=== PATIENT | female | born 1950 | race Caucasian/White ===

== ENCOUNTER → 2021-03-15 11:32 | Outpatient (BNVA) | payer MEDICARE, MEDICAID, SELFPAY | PROVIDERS: Visit Provider Family Medicine | DX: E78.00 Pure hypercholesterolemia, unspecified (principal); I10 Essential (primary) hypertension; K52.9 Noninfective gastroenteritis and colitis, unspecified; K21.9 Gastro-esophageal reflux disease without esophagitis | CPT/HCPCS: 80053; 80061; 82043; 85025 ==

== ENCOUNTER → 2021-05-31 10:43 | Outpatient (BNVA) | payer MEDICARE, MEDICAID, SELFPAY | PROVIDERS: PCP Family Medicine; Visit Provider Family Medicine | DX: E87.6 Hypokalemia (principal) | CPT/HCPCS: 80048 ==

== ENCOUNTER → 2021-07-26 11:00 | Outpatient (BNVA) | payer MEDICARE, MEDICAID, SELFPAY | PROVIDERS: PCP Family Medicine; Visit Provider Family Medicine | DX: M51.36 Other intervertebral disc degeneration, lumbar region (principal); N39.41 Urge incontinence; E87.6 Hypokalemia; Z23 Encounter for immunization; Z79.891 Long term (current) use of opiate analgesic; K21.9 Gastro-esophageal reflux disease without esophagitis | CPT/HCPCS: 80307 ==

== ENCOUNTER 2021-10-17 10:35 | Emergency (ER) | payer MEDICARE, MEDICAID, SELFPAY ==
[2021-10-17 10:55] VITALS: BP 207/77; PULSE 56; RESP 18; TEMP 36.9; O2SAT 93; BMI 42.8
[2021-10-17 10:59] VITALS: BP 167/75; PULSE 56; RESP 18; O2SAT 93
--- NOTE | 2021-10-17 11:25 | XRR_ITS ---
PROCEDURE INFORMATION: Exam: XR Left Hand Exam date and time: 10/17/2021 11:30 AM Age: 71 years old Clinical indication: Pain; Hand; Left TECHNIQUE: Imaging protocol: XR Left hand. Views: 3 or more views. COMPARISON: No relevant prior studies available. FINDINGS: Bones/joints: Normal. Soft tissues: Normal. XR/XR hand LT min 3V* [id number] IMPRESSION: No acute findings.
[2021-10-17] MEDS: HYDROcodone-acetaminophen 5-325 mg Tablet 1 TAB PO (11:39)
--- NOTE | 2021-10-17 11:50 | ED_ITS ---
HPI - Extremity Problem General: Chief complaint: Extremity Injury, Upper Stated complaint: Rt Hand Swollen Time Seen by Provider: 10/17/21 10:41 Source: patient Mode of arrival: ambulatory History of Present Illness: 71-year-old female who presents to the emergency room with complaint of right hand pain and swelling. She reached down in between cushion of a chair on the side arm and felt like it got crushed. Happened a few days ago. She has pain at the right first MP joint. No skin tear or ulceration. MD Complaint: joint pain Onset (ago): day(s) (1) Pain Consistency: constant Location: right Quality: sharp Radiation: none Relieving factors: cold therapy and rest Exacerbating factors: range of motion and palpation Associated symptoms: Deny arthralgias, chest pain, fever(s), myalgias, rash, short of breath or other Review of Systems Const: Denies: fever(s), chills or body aches ENMT: Denies: throat pain, ear or mastoid pain, nasal discharge or nasal congestion Card: Denies: chest pain or palpitations Resp: Denies: dyspnea, productive cough or non-productive cough GI: Denies: abdominal pain, nausea, vomiting, hematemesis, coffee ground emesis, diarrhea, constipation, bloating, hematochezia or melena : Denies: flank pain, difficulty voiding, dysuria, urinary frequency or urinary urgency Skin/Breast: Denies: rash PFSH ED PFSH: Medical History (Updated 10/17/21 @ 14:54 by Luis Carlos Rodriguez DO) Carpal tunnel syndrome, bilateral Chiari malformation Degenerative disc disease Lumbar spine Depression Essential hypertension GERD (gastroesophageal reflux disease) Hypercholesteremia Hypothyroidism CASE (obstructive sleep apnea) Uses a CPAP Osteoarthritis Surgical History H/O: hysterectomy Total History of appendectomy History of carpal tunnel surgery of left wrist History of carpal tunnel surgery of right wrist History of hernia repair Right inguinal History of tonsillectomy Hx of right heart catheterization S/P cholecystectomy Status post left rotator cuff repair Status post medial meniscus repair of right knee Family History Mother Cancer, Onset Age: 80 lung cancer Hyperthyroidism COPD (chronic obstructive pulmonary disease) Father Cancer, Onset Age: 56 prostate Social History Smoking and tobacco status: current every day smoker Second hand smoke exposure: No Alcohol intake: former Former alcohol use details: occasional social drinker Adopted: No Caregiver/support person: Yes Lives independently: Yes Household members: children Housing: House Marital status: Number of children: 3 Highest education level completed: GED or Equivalent service: No Current occupational status: retired Pets and animals: Yes Pets & animals: dog(s) History of recent travel: No Current gender identity: Female Physical Exam Const: COMMON NORMALS: no acute distress GENERAL APPEARANCE: cooperative and comfortable ORIENTATION/CONSCIOUSNESS: Yes awake, Yes oriented to person, Yes oriented to place and Yes oriented to time HENMT: COMMON NORMALS: normocephalic, atraumatic and hearing grossly normal bilaterally HEAD & SCALP: normocephalic and atraumatic Neck/C-Spine: COMMON NORMALS: no JVD Resp: COMMON NORMALS: normal respiratory effort, No retractions, No use of accessory muscles and clear to auscultation bilaterally AUSCULTATION: clear to auscultation bilaterally Cardio: COMMON NORMALS: no JVD, regular rate, regular rhythm and No murmurs present (Cardio) RATE: regular rate RHYTHM: regular rhythm GI: COMMON NORMALS: Soft to palpation and No hepatosplenomegaly present AUSCULTATION: Yes normoactive bowel sounds PALPATION: Yes Soft to palpation, No Tenderness to palpation present (GI), No Guarding due to palpation present (GI) and Yes No hepatosplenomegaly present Extremity: COMMON NORMALS: normal to inspection, capillary refill normal, no clubbing, cyanosis or edema, no calf tenderness and no pedal edema Neuro: SENSORIUM/ORIENTATION: Yes oriented to person, Yes oriented to place and Yes oriented to time Skin: COMMON NORMALS: no rashes or lesions noted GENERAL SKIN EXAM: no rashes or lesions noted Course Vital Signs: Vital signs: Vital Signs Temperature 98.4 F 10/17/21 10:55 Pulse Rate 56 L 10/17/21 12:29 Respiratory Rate 18 10/17/21 12:29 Blood Pressure 162/80 10/17/21 12:29 Pulse Oximetry 93 10/17/21 12:29 MDM - Extremity (Nontraumatic) Medical Decision Making Reviewed findings with patient. X-ray is negative we will start her on a course of steroids she is concerned may be gout she has had gout problems in the past joint self is not particularly inflamed or swollen although it is fairly tender. She is not able to take nonsteroidal anti-inflammatories she uses oxycodone at home. Recheck if not improving Medical Records I reviewed the patient's medical records. Lab Data I reviewed the patient's lab results. Radiology Impressions Hand X-Ray 10/17/21 11:25 IMPRESSION: No acute findings. Discharge Plan Discharge Patient Disposition: Home Clinical Impression: Hand pain, right Condition: Stable Prescriptions: New prednisone 20 mg tablet 20 mg PO TID Qty: 15 0RF Rx Instructions: 1 p.o. 3 times daily x3 days, 1 p.o. twice daily x2 days, 1 p.o. daily x2 days No Action (DME) shower chair See Rx Instructions .Route .MEDSUPPLY Qty: 1 0RF Rx Instructions: As directed omeprazole 40 mg capsule,delayed release(DR/EC) 40 mg PO DAILY Qty: 90 0RF oxycodone 10 mg tablet 10 mg PO BID PRN (Reason: pain) 30 Days Qty: 60 0RF Rx Instructions: Do not fill until 09/23/2021 losartan 100 mg tablet 100 mg PO DAILY 0RF amlodipine 10 mg tablet 10 mg PO DAILY 0RF Viibryd 40 mg tablet 40 mg PO DAILY 0RF Rx Instructions: must administer with a meal/food loratadine [Allergy Relief (loratadine)] 10 mg tablet 10 mg PO DAILY 0RF aspirin 81 mg tablet,delayed release (DR/EC) 81 mg PO DAILY 0RF albuterol sulfate 90 mcg/actuation HFA aerosol inhaler 2 puff inhalation Q6H PRN0RF CPAP .Route .bedtime 0RF Rx Instructions: CPAP at night for sleep apnea oxybutynin chloride 5 mg tablet 5 mg PO BID Qty: 180 1RF Rx Instructions: Please disregard the prior rx ondansetron HCl [Zofran] 4 mg tablet 4 mg PO Q8H PRN (Reason: nausea and vomiting) Qty: 10 0RF colesevelam 625 mg tablet 625 mg PO QAM Qty: 90 0RF (DME) Cpap mask and suppies See Rx Instructions .Route .MEDSUPPLY Qty: 1 0RF Rx Instructions: As directed baclofen 10 mg tablet See Rx Instructions .ROUTE .COMPLEX Qty: 120 0RF Dose Instruction: TAKE 1 TABLET BY MOUTH TWICE DAILY NEEDED Rx Instructions: TAKE 1 TABLET BY MOUTH TWICE DAILY NEEDED metoprolol tartrate 50 mg tablet 50 mg PO BID Qty: 180 0RF atorvastatin 20 mg tablet 20 mg PO DAILY Qty: 90 0RF levothyroxine 150 mcg capsule 150 mcg PO DAILY Qty: 90 0RF Discharge Orders: Discharge ED (Routine); Ordered 10/17/21 Ordered By: Luis Carlos Rodriguez Referrals: Kayla Mcfarlane DO [Primary Care Provider] - Discharge Diet: Usual diet Discharge Activity: Resume usual activity Patient Instructions: Opioid Safety Activity Restrictions/Additional Instructions: Follow-up with your primary care doctor if persists. Coding Level of Care Code ED Bleaching Machine Operator for Maisha Robison
[2021-10-17 12:29] VITALS: BP 162/80; PULSE 56; RESP 18; O2SAT 93
== END 2021-10-17 12:31 | disposition home or self-care (01) ==
PROVIDERS: Emergency Provider Family Medicine; PCP Family Medicine
DX: M79.89 Other specified soft tissue disorders (principal); M79.641 Pain in right hand
CPT/HCPCS: 73130; 99283

== ENCOUNTER → 2021-11-01 11:36 | Outpatient (BNVA) | payer MEDICARE, MEDICAID, SELFPAY | PROVIDERS: PCP Family Medicine; Visit Provider Family Medicine | DX: E03.9 Hypothyroidism, unspecified (principal); J01.90 Acute sinusitis, unspecified; B96.89 Other specified bacterial agents as the cause of diseases classified elsewhere; R09.89 Other specified symptoms and signs involving the circulatory and respiratory systems; I10 Essential (primary) hypertension | CPT/HCPCS: 80053; 84443; 85025 ==

== ENCOUNTER 2022-02-08 09:06 | Outpatient (CLI) | payer MEDICARE, MEDICAID, SELFPAY ==
--- NOTE | 2022-02-08 10:00 | USCV_ITS ---
HaseebAlesia roy Age: 71 Gender: F : 1950 Exam Date: 02/08/2022 09:17 Ordering Phys: Kayla Mcfarlane DO Technologist: LEEANN [place] [facility] [place] Bilaterly Bruits Risk Factors: Unknown Previous Vascular Surgery: CABG Right Brachial BP: / Left Brachial BP: / Right Left Velocity (cm/s) Spectral Plaque Velocity (cm/s) Spectral Plaque Syst/Diast Broadening Syst/Diast Broadening 62.80/ 15.20 Prox CCA 59.20 / 13.70 53.60/ 13.20 Mid CCA 50.60 / 8.60 36.80/ 12.10 Distal CCA 55.70 / 17.20 Hetro 46.70/ 9.10 Prox ICA 55.70 / 19.70 Hetro 37.70/ 10.40 Mid ICA 57.50 / 18.90 56.70/ 12.60 Distal ICA 68.60 / 20.60 86.50 ECA 80.60 Hetro 1.06 ICA/CCA 1.36 Antegrade Vertebral Antegrade 32.60/ 7.30 cm/s 34.30/ 10.30 cm/s Bi Subclavian Tri 97.80 135.4 0 CONCLUSIONS Right ICA stenosis <50%. Mild atheromatous plaque right carotid bulb/ICA. Left ICA stenosis <50%. Mild atheromatous plaque left carotid bulb/ICA. Normal antegrade Doppler flow noted in the right vertebral artery. Normal antegrade Doppler flow noted in the left vertebral artery. Kareem Bravo MD (Electronically Signed) Final Date: 08 February 2022 09:54 S
== END 2022-02-08 09:07 | disposition home or self-care (01) ==
PROVIDERS: PCP Family Medicine; Visit Provider Family Medicine
DX: R09.89 Other specified symptoms and signs involving the circulatory and respiratory systems (principal)
CPT/HCPCS: 93880

== ENCOUNTER → 2022-02-14 11:45 | Outpatient (BNVA) | payer MEDICARE, MEDICAID, SELFPAY | PROVIDERS: PCP Family Medicine; Visit Provider Family Medicine | DX: M51.36 Other intervertebral disc degeneration, lumbar region (principal); R00.1 Bradycardia, unspecified; F41.9 Anxiety disorder, unspecified | CPT/HCPCS: 82607; 85025 ==

== ENCOUNTER → 2022-08-15 09:18 | Outpatient (BNVA) | payer MEDICARE, MEDICAID, SELFPAY | PROVIDERS: PCP Family Medicine; Visit Provider Family Medicine | DX: I10 Essential (primary) hypertension (principal); E78.00 Pure hypercholesterolemia, unspecified; E03.9 Hypothyroidism, unspecified; M51.36 Other intervertebral disc degeneration, lumbar region | CPT/HCPCS: 80053; 80061; 82043; 84443; 85025 ==

== ENCOUNTER 2022-08-26 14:31 | Outpatient (CLI) | payer MEDICARE, MEDICAID, SELFPAY ==
--- NOTE | 2022-08-26 14:39 | MM_ITS ---
WS: [id number] BILATERAL 3D TOMOSYNTHESIS DIGITAL SCREENING MAMMOGRAPHY WITH CAD CLINICAL INFORMATION: screening mammogram HISTORY: Screening mammogram. No current complaints. COMPARISON: 2020 TECHNIQUE: Bilateral CC and MLO views. FINDINGS: Scattered fibroglandular densities bilaterally. No suspicious focal mass, asymmetry, calcifications, or architectural distortion. No evidence of malignancy. Incidental punctate calcifications. A few pun ctate clustered calcifications. MM/[place] [id number] IMPRESSION: BI-RADS: 2-Benign FOLLOW UP: 1 Year Follow-up Recommend return to annual screening mammography.
== END 2022-08-26 14:32 | disposition home or self-care (01) ==
PROVIDERS: PCP Family Medicine; Visit Provider Family Medicine
DX: Z12.31 Encounter for screening mammogram for malignant neoplasm of breast (principal)
CPT/HCPCS: 77063; 77067

== ENCOUNTER → 2022-11-21 10:22 | Outpatient (BNVA) | payer MEDICARE, MEDICAID, SELFPAY | PROVIDERS: PCP Family Medicine; Visit Provider Family Medicine | DX: E87.6 Hypokalemia (principal); M51.36 Other intervertebral disc degeneration, lumbar region; F17.219 Nicotine dependence, cigarettes, with unspecified nicotine-induced disorders | CPT/HCPCS: 80048 ==

== ENCOUNTER → 2023-02-18 11:12 | Outpatient (BNVA) | payer MEDICARE, MEDICAID, SELFPAY | PROVIDERS: PCP Family Medicine; Visit Provider Family Medicine | DX: E03.9 Hypothyroidism, unspecified (principal); E87.6 Hypokalemia; I10 Essential (primary) hypertension; M51.36 Other intervertebral disc degeneration, lumbar region | CPT/HCPCS: 80048; 84443 ==

== ENCOUNTER → 2023-04-29 10:40 | Outpatient (BNVA) | payer MEDICARE, MEDICAID, SELFPAY | PROVIDERS: PCP Family Medicine; Visit Provider Family Medicine | DX: E03.9 Hypothyroidism, unspecified (principal) | CPT/HCPCS: 84439; 84443 ==

== ENCOUNTER → 2023-04-30 10:33 | Outpatient (BNVA) | payer MEDICARE, MEDICAID, SELFPAY | PROVIDERS: PCP Family Medicine; Visit Provider Registered Nurse Neonatal Intensive Care | DX: R39.9 Unspecified symptoms and signs involving the genitourinary system (principal); R10.9 Unspecified abdominal pain; M54.9 Dorsalgia, unspecified; M54.50 Low back pain, unspecified | CPT/HCPCS: 81000; 87086 ==

== ENCOUNTER 2023-05-01 16:19 | Emergency (ER) | payer MEDICARE, MEDICAID, SELFPAY ==
[2023-05-01 16:30] VITALS: BP 157/72; PULSE 59; RESP 18; TEMP 37.1; O2SAT 96; BMI 39.3
[2023-05-01 17:09] LABS: Basophils # 0.1 10^3/uL (0.0-0.1); Basophils % 0.6 %; Eosinophils # 0.3 10^3/uL (0.0-0.8); Eosinophils % 2.4 %; Hematocrit 47.2 % (36-47); Lymphocytes # 2.8 10^3/uL (0.8-4.8); Lymphocytes % 26.2 %; Mean Corpuscular Volume 84.4 fl (85-98); Mean Platelet Volume 9.5 fL (7.4-10.4); Monocytes # 0.8 10^3/uL (0.2-0.9); Monocytes % 7.7 %; Neutrophils # 6.78 10^3/uL (1.8-7.7); Neutrophils % 62.8 %; Nucleated Red Blood Cells % 0 %; Platelet Count 286 10^3/cmm (157-399); Red Blood Count 5.59 10^6/uL (3.85-5.65); Red Cell Distribution Width 15.1 % (12.1-15.1)
--- NOTE | 2023-05-01 17:18 | CTR_ITS ---
PROCEDURE INFORMATION: Exam: CT Abdomen And Pelvis Without Contrast Exam date and time: 05/01/2023 6:05 PM Age: 72 years old Clinical indication: Abdominal pain; Flank; Right; Prior surgery; Surgery date: 6+ months; Surgery type: Appy, hyst, patience hernia; Additional info: Right flank pain and hematuria TECHNIQUE: Imaging protocol: Computed tomography of the abdomen and pelvis without contrast. Radiation optimization: All CT scans at this facility use at least one of these dose optimization techniques: automated exposure control; mA and/or kV adjustment per patient size (includes targeted exams where dose is matched to clinical indication); or iterative reconstruction. REPORTING DATA: Count of CT and Cardiac NM exams in prior 12 months: This patient has received 0 known CTs and 0 known cardiac nuclear medicine studies in the 12 months prior to the current study. COMPARISON: No relevant prior studies available. RADIATION DOSE METRICS: Total DLP (mGy-cm): 1019 FINDINGS: Lungs: Mild nonspecific ground-glass density at the lung bases. No consolidative infiltrates. Liver: Unremarkable. No mass. Gallbladder and bile ducts: Nonvisualization of the gallbladder suggesting cholecystectomy. No biliary dilatation. Pancreas: Unremarkable. No ductal dilation. Spleen: Unremarkable. No splenomegaly. Adrenal glands: Small bilateral adrenal adenomas noted, measuring up to 1.4 cm. Kidneys and ureters: The kidneys are morphologically normal. No nephrolithiasis. No hydronephrosis. No ureteral calculi. No obstructive uropathy. Simple appearing 1.9 cm right renal cyst noted incidentally. Stomach and bowel: Diverticulosis of the sigmoid colon. No findings of acute diverticulitis. Mural thickening of the distal descending and sigmoid portions of the colon, suggesting nonspecific distal colitis. Appendix: No evidence of appendicitis. Intraperitoneal space: No free air. No significant fluid collection. Vasculature: No abdominal aortic aneurysm. Lymph nodes: No pathologically enlarged lymph nodes. Urinary bladder: Urinary bladder is almost completely empty. Urinary bladder wall is asymmetrically thickened which may be secondary to underdistention, or may be related to an infiltrating process. Reproductive: Status post hysterectomy. Bones/joints: Postop change and degenerative change of the lumbar spine noted. Soft tissues: Unremarkable. CT/CT kidney stone [id number] IMPRESSION: 1. Small bilateral adrenal adenomas noted, measuring up to 1.4 cm. 2. The kidneys are morphologically normal. No nephrolithiasis. No hydronephrosis. No ureteral calculi. No obstructive uropathy. 3. Urinary bladder is almost completely empty. Urinary bladder wall is asymmetrically thickened which may be secondary to underdistention, or may be related to an infiltrating process. 4. Mural thickening of the distal descending and sigmoid portions of the colon, suggesting nonspecific distal colitis. 5. Diverticulosis of the sigmoid colon. No findings of acute diverticulitis. COMMENTS: 1. Consistent with the [employer]'s Incidental Findings Committee white paper (J Am Tyrese Radiol 2017): For any incidental adrenal lesion greater than or equal to 1 cm but less than or equal to 4 cm classified in this report as benign, likely benign, or containing fat (including classification as an adenoma or myelolipoma), no follow-up imaging is recommended per consensus recommendations based on imaging criteria. Further lab evaluation could be pursued if warranted based on clinical findings. 2. Consistent with the [employer]'s Incidental Findings Committee white paper (J Am Tyrese Radiol 2018): Any incidental renal lesion less than 1 cm or classified as too small to characterize, or any incidental cystic renal lesion characterized as simple-appearing, is likely benign. No follow-up imaging is recommended for these lesions per consensus recommendations based on imaging criteria.
[2023-05-01 17:21] LABS: Alanine Aminotransferase 7 U/L (0-33); Albumin Level 3.8 g/dL (3.5-5.2); Alkaline Phosphatase 136 U/L (35-105); Anion Gap 13.6 (5-19); Aspartate Amino Transferase 8 U/L (0-32); Blood Urea Nitrogen 16 mg/dL (8-23); Calcium 9.3 mg/dL (8.5-10.5); Carbon Dioxide 23 mmol/L (22-29); Chloride 105 mmol/L (98-107); Globulin 3.2 g/dL (1.3-4.6); Glomerular Filtration Rate 54.8 mL/min (90-130); Glucose 93 mg/dL (65-115); Osmolality Calculated 287 mOsm/kg (285-295); Potassium 3.6 mmol/L (3.5-5.1); Sodium 138 mmol/L (136-145); Total Bilirubin 0.4 mg/dL (0.15-1.2)
[2023-05-01 17:49] VITALS: RESP 17
[2023-05-01] MEDS: sodium chloride 0.9% 1,000 ML 999 ML IV (17:49)
[2023-05-01] MEDS: oxyCODONE-APAP 10-325 mg Tablet 1 TAB PO (17:49)
[2023-05-01 18:44] LABS: Add Urine Microscopic? YES; Bilirubin Urine Neg (Negative); Blood Urine Neg (Negative); Glucose Urine UA Norm (Normal); Ketones Urine Negative (Negative); Leukocyte Esterase Urine 1+ (Negative); Nitrate Urine Negative (Negative); Protein Urine Neg (Negative); Urine Appearance Hazy (CLEAR); Urine Color Dark Yellow (Yellow); Urobilinogen Urine Norm (Negative); pH Urine 6 (5-7)
[2023-05-01 18:48] LABS: Add Urine Culture? No; Amorphous Sediment Urine TRACE /hpf; Bacteria Urine TRACE /hpf; Hyaline Casts Urine 0-4 /lpf; Mucus Urine 2+ /hpf; RBC Urine 0-4 /hpf (0-2); Renal Epithelial Cells Urine RARE /hpf; Transitional Epi Cells Urine 0-4 /hpf
--- NOTE | 2023-05-01 19:56 | W.ED.BACK ---
Documented by User: JORDAN Martinez 05/01/23 20:09 HPI - Back Pain/Injury General: Chief Complaint: Back Pain/Injury Stated Complaint: low back pain/blood in urine Time Seen by Provider: 05/01/23 16:49 History of Present Illness: Patient is in today for right-sided flank and low back pain. She reports that this started the night before last. She reports that yesterday she went to the urgent care and they did a urine sample and labs they sent her home after a Toradol shot. She reports that the Toradol did help the pain somewhat but it came back. She reports that she never heard from her labs and so she called her primary care provider today. Primary care provider said that since there was blood in her urine she needed to come and have a CT scan at the ER. Patient denies any fever or chills. She reports that she has had some nausea without any vomiting. She has never had a kidney stone in the past but she does have a concern for that. She denies having her gallbladder or her appendix. She denies diarrhea or constipation. Associated symptoms: Reports abdominal pain and nausea; Deny chills, fever(s) or vomiting Review of Systems Const: Denies: fever(s) or chills Card: Denies: chest pain or palpitations Resp: Denies: dyspnea, productive cough or non-productive cough GI: Reports: abdominal pain and nausea; Denies: vomiting, diarrhea or constipation : Reports: flank pain Musc: Reports: back pain PFSH ED PFSH: Medical History Carpal tunnel syndrome, bilateral Degenerative disc disease Lumbar spine Depression Essential hypertension GERD (gastroesophageal reflux disease) Hypercholesteremia Hypothyroidism CASE (obstructive sleep apnea) Uses a CPAP Osteoarthritis Surgical History H/O: hysterectomy Total History of appendectomy History of carpal tunnel surgery of left wrist History of carpal tunnel surgery of right wrist History of hernia repair Right inguinal History of tonsillectomy Hx of right heart catheterization S/P cholecystectomy Status post left rotator cuff repair Status post medial meniscus repair of right knee Family History Mother Cancer, Onset Age: 80 lung cancer Hyperthyroidism COPD (chronic obstructive pulmonary disease) Father Cancer, Onset Age: 56 prostate Social History Smoking and tobacco/nicotine status: current every day tobacco/nicotine user Second hand smoke exposure: No Alcohol intake: former Former alcohol use details: occasional social drinker Substance/Drug Use: never Adopted: No Caregiver/support person: Yes Lives independently: Yes Household members: children Housing: House Marital status: Number of children: 3 Highest education level completed: GED or Equivalent service: No Current occupational status: retired Pets and animals: Yes Pets & animals: dog(s) Current gender identity: Female Physical Exam Const: COMMON NORMALS: patient oriented x3 and alert OTHER: Patient appears to be in pain and is grabbing her right side low back and flank Neck/C-Spine: COMMON NORMALS: no JVD Resp: COMMON NORMALS: normal respiratory effort, No use of accessory muscles and clear to auscultation bilaterally AUSCULTATION: clear to auscultation bilaterally Cardio: COMMON NORMALS: no JVD, regular rate, regular rhythm, S1 normal heart sound present and S2 normal heart sound present RATE: regular rate RHYTHM: regular rhythm HEART SOUNDS: S1 normal heart sound present and S2 normal heart sound present GI: COMMON NORMALS: Soft to palpation INSPECTION: Yes normal to inspection AUSCULTATION: Yes normoactive bowel sounds PALPATION: Yes Soft to palpation, Yes Tenderness to palpation present (GI) Details: RLQ and No Rebound tenderness present : COMMON NORMALS: Yes no CVA tenderness BLADDER/KIDNEY EXAM: Yes no CVA tenderness Back/Pelvis: COMMON NORMALS: no CVA tenderness OTHER: Patient is grabbing her right-sided low back however it is not tender to palpation there is no obvious bony or soft tissue deformity appreciated. Patient is walking with a steady gait and no limp. Neuro: COMMON NORMALS: patient oriented x3 SENSORIUM/ORIENTATION: Yes alert Course Vital Signs: Vital signs: Vital Signs Temperature 98.7 F 05/01/23 16:30 Pulse Rate 59 L 05/01/23 16:30 Respiratory Rate 17 05/01/23 17:49 Blood Pressure 157/72 05/01/23 16:30 Pulse Oximetry 96 05/01/23 16:30 MDM - Back Pain/Injury Medical Decision Making Patient takes chronic pain medication at home for back pain which she reports this is very different. Patient has allergy to numerous pain medications. She is able to tolerate oxycodone. 1 dose was given today to help with her pain. Decided not to give Toradol because patient's creatinine is 1 and she had a dose of Toradol yesterday. Patient labs do not reflect any acute infectious process. Abdominal CT stone protocol is done. CT shows small bilateral adrenal adenomas, no nephrolithiasis, no hydronephrosis, no ureteral calculi, no obstructive uropathy. Urinary bladder wall is asymmetrically thickened which may be secondary to under distention or may be related to an infiltrating process. There is some mural thickening of the distal descending and sigmoid portions of the colon suggesting nonspecific distal colitis no acute diverticulitis. Urine shows positive leukoesterase, negative nitrates. Hazy urine with some hyaline cast. We will go ahead and treat patient to cover for early developing urinary tract infection given the asymmetric bladder wall thickening and the patient's current pain. Treat with cefdinir as patient has a sulfa allergy. Nitrofurantoin not chosen due to elevated creatinine and advanced age. Advised patient to follow-up with her primary care provider which she already has an appointment with on Friday. Make sure she is staying well-hydrated. Return to the ER as needed for any new or worsening symptoms. Labs 05/01/23 16:58 05/01/23 16:58 Radiology Impressions Abdomen/Pelvis CT 05/01/23 17:18 IMPRESSION: 1. Small bilateral adrenal adenomas noted, measuring up to 1.4 cm. 2. The kidneys are morphologically normal. No nephrolithiasis. No hydronephrosis. No ureteral calculi. No obstructive uropathy. 3. Urinary bladder is almost completely empty. Urinary bladder wall is asymmetrically thickened which may be secondary to underdistention, or may be related to an infiltrating process. 4. Mural thickening of the distal descending and sigmoid portions of the colon, suggesting nonspecific distal colitis. 5. Diverticulosis of the sigmoid colon. No findings of acute diverticulitis. COMMENTS: 1. Consistent with the [employer]'s Incidental Findings Committee white paper (J Am Tyrese Radiol 2017): For any incidental adrenal lesion greater than or equal to 1 cm but less than or equal to 4 cm classified in this report as benign, likely benign, or containing fat (including classification as an adenoma or myelolipoma), no follow-up imaging is recommended per consensus recommendations based on imaging criteria. Further lab evaluation could be pursued if warranted based on clinical findings. 2. Consistent with the [employer]'s Incidental Findings Committee white paper (J Am Tyrese Radiol 2018): Any incidental renal lesion less than 1 cm or classified as too small to characterize, or any incidental cystic renal lesion characterized as simple-appearing, is likely benign. No follow-up imaging is recommended for these lesions per consensus recommendations based on imaging criteria. Laboratory Results WBC 10.80 10^3/uL (3.29-11.43) 05/01/23 16:58 RBC 5.59 10^6/uL (3.85-5.65) 05/01/23 16:58 Hgb 15.10 g/dL (11.27-16.99) 05/01/23 16:58 Hct 47.2 % (36-47) H 05/01/23 16:58 MCV 84.4 fl (85-98) L 05/01/23 16:58 MCH 27.0 pg (27-33) 05/01/23 16:58 MCHC 32.0 g/dL (30-55) 05/01/23 16:58 RDW 15.1 % (12.1-15.1) 05/01/23 16:58 Plt Count 286 10^3/cmm (157-399) 05/01/23 16:58 MPV 9.5 fL (7.4-10.4) 05/01/23 16:58 Neut % (Auto) 62.8 % 05/01/23 16:58 Lymph % (Auto) 26.2 % 05/01/23 16:58 Kemper % (Auto) 7.7 % 05/01/23 16:58 Eos % (Auto) 2.4 % 05/01/23 16:58 Baso % (Auto) 0.6 % 05/01/23 16:58 Neut # (Auto) 6.78 10^3/uL (1.8-7.7) 05/01/23 16:58 Lymph # (Auto) 2.8 10^3/uL (0.8-4.8) 05/01/23 16:58 Kemper # (Auto) 0.8 10^3/uL (0.2-0.9) 05/01/23 16:58 Eos # (Auto) 0.3 10^3/uL (0.0-0.8) 05/01/23 16:58 Baso # (Auto) 0.1 10^3/uL (0.0-0.1) 05/01/23 16:58 Nucleated RBC % (auto) 0 % 05/01/23 16:58 Nucleated RBCs # 0.0 /100WBC 05/01/23 16:58 Sodium 138 mmol/L (136-145) 05/01/23 16:58 Potassium 3.6 mmol/L (3.5-5.1) 05/01/23 16:58 Chloride 105 mmol/L (98-107) 05/01/23 16:58 Carbon Dioxide 23 mmol/L (22-29) 05/01/23 16:58 Anion Gap 13.6 (5-19) 05/01/23 16:58 BUN 16 mg/dL (8-23) 05/01/23 16:58 Creatinine 1.0 mg/dL (0.5-0.9) H 05/01/23 16:58 GFR Calculation 54.8 mL/min (90-130) L 05/01/23 16:58 Glucose 93 mg/dL (65-115) 05/01/23 16:58 Calculated Osmolality 287 mOsm/kg (285-295) 05/01/23 16:58 Calcium 9.3 mg/dL (8.5-10.5) 05/01/23 16:58 Total Bilirubin 0.4 mg/dL (0.15-1.2) 05/01/23 16:58 AST 8 U/L (0-32) 05/01/23 16:58 ALT 7 U/L (0-33) 05/01/23 16:58 Alkaline Phosphatase 136 U/L (35-105) H 05/01/23 16:58 Total Protein 7.0 g/dL (6.6-8.7) 05/01/23 16:58 Albumin 3.8 g/dL (3.5-5.2) 05/01/23 16:58 Globulin 3.2 g/dL (1.3-4.6) 05/01/23 16:58 Urine Color Dark yellow (Yellow) 05/01/23 18:09 Urine Appearance Hazy (CLEAR) A 05/01/23 18:09 Urine pH 6 (5-7) 05/01/23 18:09 Ur Specific Platinum 1.020 (1.005-1.030) 05/01/23 18:09 Urine Protein Neg (Negative) 05/01/23 18:09 Urine Glucose (UA) Norm (Normal) 05/01/23 18:09 Urine Ketones Negative (Negative) 05/01/23 18:09 Urine Blood Neg (Negative) 05/01/23 18:09 Urine Nitrate Negative (Negative) 05/01/23 18:09 Urine Bilirubin Neg (Negative) 05/01/23 18:09 Urine Urobilinogen Norm mg/dL (Negative) 05/01/23 18:09 Ur Leukocyte Esterase 1+ (Negative) H 05/01/23 18:09 Urine RBC 0-4 /hpf (0-2) H 05/01/23 18:09 Urine WBC 5-10 /hpf (0-5) H 05/01/23 18:09 Ur Squamous Epith Cells 5-10 /hpf (0-5) H 05/01/23 18:09 Ur Transition Epith Cell 0-4 /hpf 05/01/23 18:09 Ur Renal Epithelial Cell Rare /hpf 05/01/23 18:09 Amorphous Sediment Trace /hpf 05/01/23 18:09 Urine Bacteria Trace /hpf (NONE) 05/01/23 18:09 Hyaline Casts 0-4 /lpf H 05/01/23 18:09 Urine Mucus 2+ /hpf 05/01/23 18:09 All radiology interpretation(s) finalized by discharge Discharge Plan Discharge Patient Disposition: Home Clinical Impression: UTI (urinary tract infection) Condition: Stable Prescriptions: New cefdinir 300 mg capsule 300 mg PO BID 5 Days Qty: 10 0RF No Action (DME) shower chair See Rx Instructions .Route .MEDSUPPLY Qty: 1 0RF Rx Instructions: As directed loratadine [Allergy Relief (loratadine)] 10 mg tablet 10 mg PO DAILY CPAP .Route .bedtime Rx Instructions: CPAP at night for sleep apnea aspirin 81 mg tablet,delayed release (DR/EC) 81 mg PO DAILY Qty: 90 1RF losartan 100 mg tablet See Rx Instructions .ROUTE .COMPLEX Qty: 90 1RF Dose Instruction: TAKE ONE TABLET BY MOUTH DAILY Rx Instructions: TAKE ONE TABLET BY MOUTH DAILY Viibryd 40 mg tablet See Rx Instructions .ROUTE .COMPLEX Qty: 90 1RF Dose Instruction: TAKE ONE TABLET BY MOUTH DAILY must administer with a meal/food Rx Instructions: TAKE ONE TABLET BY MOUTH DAILY must administer with a meal/food buspirone 5 mg tablet 5 mg PO TID Qty: 60 0RF metoprolol tartrate 25 mg tablet 25 mg PO BID Qty: 180 1RF albuterol sulfate 90 mcg/actuation HFA aerosol inhaler 2 puff inhalation Q6H PRN (Reason: shortness of breath or wheezing) Qty: 8.5 2RF oxycodone 10 mg tablet 10 mg PO BID PRN (Reason: pain) 30 Days Qty: 60 0RF Rx Instructions: Do not fill until 02/20/2023 oxycodone 10 mg tablet 10 mg PO BID PRN (Reason: pain) 30 Days Qty: 60 0RF Rx Instructions: Do not fill until 03/21/2023 oxycodone 10 mg tablet 10 mg PO BID PRN (Reason: pain) 30 Days Qty: 60 0RF Rx Instructions: Do not fill until 04/20/2023 ondansetron HCl [Zofran] 4 mg tablet 4 mg PO Q8H PRN (Reason: nausea and vomiting) Qty: 10 0RF (DME) Cpap mask and suppies See Rx Instructions .Route .MEDSUPPLY Qty: 1 0RF Rx Instructions: As directed atorvastatin 20 mg tablet See Rx Instructions .ROUTE .COMPLEX Qty: 90 2RF Dose Instruction: TAKE 1 TABLET BY MOUTH EVERY DAY Rx Instructions: TAKE 1 TABLET BY MOUTH EVERY DAY baclofen 10 mg tablet See Rx Instructions .ROUTE .COMPLEX Qty: 180 1RF Dose Instruction: TAKE ONE TABLET BY MOUTH TWICE DAILY NEEDED Rx Instructions: TAKE ONE TABLET BY MOUTH TWICE DAILY NEEDED potassium chloride [Klor-Con M20] 20 mEq tablet,ER particles/crystals 20 meq PO DAILY Qty: 90 1RF oxybutynin chloride 5 mg tablet 5 mg PO BID Qty: 180 1RF Rx Instructions: Please disregard the prior rx omeprazole 40 mg capsule,delayed release(DR/EC) See Rx Instructions .ROUTE .COMPLEX Qty: 180 0RF Dose Instruction: take 1 capsule BY MOUTH TWICE DAILY Rx Instructions: take 1 capsule BY MOUTH TWICE DAILY furosemide 20 mg tablet See Rx Instructions .ROUTE .COMPLEX Qty: 90 1RF Dose Instruction: TAKE 1 TABLET BY MOUTH EVERY DAY EVERY MORNING Rx Instructions: TAKE 1 TABLET BY MOUTH EVERY DAY EVERY MORNING amlodipine 10 mg tablet See Rx Instructions .ROUTE .COMPLEX Qty: 90 0RF Dose Instruction: TAKE 1 TABLET BY MOUTH EVERY DAY Rx Instructions: TAKE 1 TABLET BY MOUTH EVERY DAY levothyroxine 137 mcg tablet See Rx Instructions .ROUTE .COMPLEX Qty: 90 1RF Dose Instruction: TAKE 1 TABLET BY MOUTH EVERY DAY Rx Instructions: TAKE 1 TABLET BY MOUTH EVERY DAY Discharge Orders: Discharge ED (Routine); Ordered 05/01/23 Ordered By: Alaina Gloria Referrals: Kayla Mcfarlane DO [Primary Care Provider] - Discharge Diet: Usual diet Discharge Activity: Increase activity as tolerated Patient Instructions: Urinary Tract Infection in Women (ED), Flank Pain (ED) Activity Restrictions/Additional Instructions: Your imaging did not show any acute kidney stone or obstruction. We discussed the findings on your CT scan which can be followed up outpatient as directed by your primary care provider. Take antibiotics as directed to cover for urinary tract infection. Follow-up with primary care provider as already scheduled on Friday. Return to the ER as needed for any new or worsening symptoms. Coding Level of Care Code ED Broadcast Correspondent for Chg Fwd Documented by User: Luis Carlos Rodriguez DO 05/02/23 08:30 HPI - Back Pain/Injury General: Chief Complaint: Back Pain/Injury Stated Complaint: low back pain/blood in urine Time Seen by Provider: 05/01/23 16:49 PFSH ED PFSH: Medical History Carpal tunnel syndrome, bilateral Degenerative disc disease Lumbar spine Depression Essential hypertension GERD (gastroesophageal reflux disease) Hypercholesteremia Hypothyroidism CASE (obstructive sleep apnea) Uses a CPAP Osteoarthritis Surgical History H/O: hysterectomy Total History of appendectomy History of carpal tunnel surgery of left wrist History of carpal tunnel surgery of right wrist History of hernia repair Right inguinal History of tonsillectomy Hx of right heart catheterization S/P cholecystectomy Status post left rotator cuff repair Status post medial meniscus repair of right knee Family History Mother Cancer, Onset Age: 80 lung cancer Hyperthyroidism COPD (chronic obstructive pulmonary disease) Father Cancer, Onset Age: 56 prostate Social History Smoking and tobacco/nicotine status: current every day tobacco/nicotine user Second hand smoke exposure: No Alcohol intake: former Former alcohol use details: occasional social drinker Substance/Drug Use: never Adopted: No Caregiver/support person: Yes Lives independently: Yes Household members: children Housing: House Marital status: Number of children: 3 Highest education level completed: GED or Equivalent service: No Current occupational status: retired Pets and animals: Yes Pets & animals: dog(s) Current gender identity: Female Course Vital Signs: Vital signs: Vital Signs Temperature 98.7 F 05/01/23 16:30 Pulse Rate 59 L 05/01/23 16:30 Respiratory Rate 17 05/01/23 17:49 Blood Pressure 157/72 05/01/23 16:30 Pulse Oximetry 96 05/01/23 16:30 MDM - Back Pain/Injury Medical Decision Making Patient takes chronic pain medication at home for back pain which she reports this is very different. Patient has allergy to numerous pain medications. She is able to tolerate oxycodone. 1 dose was given today to help with her pain. Decided not to give Toradol because patient's creatinine is 1 and she had a dose of Toradol yesterday. Patient labs do not reflect any acute infectious process. Abdominal CT stone protocol is done. CT shows small bilateral adrenal adenomas, no nephrolithiasis, no hydronephrosis, no ureteral calculi, no obstructive uropathy. Urinary bladder wall is asymmetrically thickened which may be secondary to under distention or may be related to an infiltrating process. There is some mural thickening of the distal descending and sigmoid portions of the colon suggesting nonspecific distal colitis no acute diverticulitis. Urine shows positive leukoesterase, negative nitrates. Hazy urine with some hyaline cast. We will go ahead and treat patient to cover for early developing urinary tract infection given the asymmetric bladder wall thickening and the patient's current pain. Treat with cefdinir as patient has a sulfa allergy. Nitrofurantoin not chosen due to elevated creatinine and advanced age. Advised patient to follow-up with her primary care provider which she already has an appointment with on Friday. Make sure she is staying well-hydrated. Return to the ER as needed for any new or worsening symptoms. Chart reviewed and discussed with evaristo. Agree with diagnosis andtreatmetn plan. Medical Records I reviewed the patient's medical records. Labs I reviewed the patient's lab results. 05/01/23 16:58 05/01/23 16:58 Radiology Impressions Abdomen/Pelvis CT 05/01/23 17:18 IMPRESSION: 1. Small bilateral adrenal adenomas noted, measuring up to 1.4 cm. 2. The kidneys are morphologically normal. No nephrolithiasis. No hydronephrosis. No ureteral calculi. No obstructive uropathy. 3. Urinary bladder is almost completely empty. Urinary bladder wall is asymmetrically thickened which may be secondary to underdistention, or may be related to an infiltrating process. 4. Mural thickening of the distal descending and sigmoid portions of the colon, suggesting nonspecific distal colitis. 5. Diverticulosis of the sigmoid colon. No findings of acute diverticulitis. COMMENTS: 1. Consistent with the [employer]'s Incidental Findings Committee white paper (J Am Tyrese Radiol 2017): For any incidental adrenal lesion greater than or equal to 1 cm but less than or equal to 4 cm classified in this report as benign, likely benign, or containing fat (including classification as an adenoma or myelolipoma), no follow-up imaging is recommended per consensus recommendations based on imaging criteria. Further lab evaluation could be pursued if warranted based on clinical findings. 2. Consistent with the [employer]'s Incidental Findings Committee white paper (J Am Tyrese Radiol 2018): Any incidental renal lesion less than 1 cm or classified as too small to characterize, or any incidental cystic renal lesion characterized as simple-appearing, is likely benign. No follow-up imaging is recommended for these lesions per consensus recommendations based on imaging criteria. Laboratory Results WBC 10.80 10^3/uL (3.29-11.43) 05/01/23 16:58 RBC 5.59 10^6/uL (3.85-5.65) 05/01/23 16:58 Hgb 15.10 g/dL (11.27-16.99) 05/01/23 16:58 Hct 47.2 % (36-47) H 05/01/23 16:58 MCV 84.4 fl (85-98) L 05/01/23 16:58 MCH 27.0 pg (27-33) 05/01/23 16:58 MCHC 32.0 g/dL (30-55) 05/01/23 16:58 RDW 15.1 % (12.1-15.1) 05/01/23 16:58 Plt Count 286 10^3/cmm (157-399) 05/01/23 16:58 MPV 9.5 fL (7.4-10.4) 05/01/23 16:58 Neut % (Auto) 62.8 % 05/01/23 16:58 Lymph % (Auto) 26.2 % 05/01/23 16:58 Kemper % (Auto) 7.7 % 05/01/23 16:58 Eos % (Auto) 2.4 % 05/01/23 16:58 Baso % (Auto) 0.6 % 05/01/23 16:58 Neut # (Auto) 6.78 10^3/uL (1.8-7.7) 05/01/23 16:58 Lymph # (Auto) 2.8 10^3/uL (0.8-4.8) 05/01/23 16:58 Kemper # (Auto) 0.8 10^3/uL (0.2-0.9) 05/01/23 16:58 Eos # (Auto) 0.3 10^3/uL (0.0-0.8) 05/01/23 16:58 Baso # (Auto) 0.1 10^3/uL (0.0-0.1) 05/01/23 16:58 Nucleated RBC % (auto) 0 % 05/01/23 16:58 Nucleated RBCs # 0.0 /100WBC 05/01/23 16:58 Sodium 138 mmol/L (136-145) 05/01/23 16:58 Potassium 3.6 mmol/L (3.5-5.1) 05/01/23 16:58 Chloride 105 mmol/L (98-107) 05/01/23 16:58 Carbon Dioxide 23 mmol/L (22-29) 05/01/23 16:58 Anion Gap 13.6 (5-19) 05/01/23 16:58 BUN 16 mg/dL (8-23) 05/01/23 16:58 Creatinine 1.0 mg/dL (0.5-0.9) H 05/01/23 16:58 GFR Calculation 54.8 mL/min (90-130) L 05/01/23 16:58 Glucose 93 mg/dL (65-115) 05/01/23 16:58 Calculated Osmolality 287 mOsm/kg (285-295) 05/01/23 16:58 Calcium 9.3 mg/dL (8.5-10.5) 05/01/23 16:58 Total Bilirubin 0.4 mg/dL (0.15-1.2) 05/01/23 16:58 AST 8 U/L (0-32) 05/01/23 16:58 ALT 7 U/L (0-33) 05/01/23 16:58 Alkaline Phosphatase 136 U/L (35-105) H 05/01/23 16:58 Total Protein 7.0 g/dL (6.6-8.7) 05/01/23 16:58 Albumin 3.8 g/dL (3.5-5.2) 05/01/23 16:58 Globulin 3.2 g/dL (1.3-4.6) 05/01/23 16:58 Urine Color Dark yellow (Yellow) 05/01/23 18:09 Urine Appearance Hazy (CLEAR) A 05/01/23 18:09 Urine pH 6 (5-7) 05/01/23 18:09 Ur Specific Platinum 1.020 (1.005-1.030) 05/01/23 18:09 Urine Protein Neg (Negative) 05/01/23 18:09 Urine Glucose (UA) Norm (Normal) 05/01/23 18:09 Urine Ketones Negative (Negative) 05/01/23 18:09 Urine Blood Neg (Negative) 05/01/23 18:09 Urine Nitrate Negative (Negative) 05/01/23 18:09 Urine Bilirubin Neg (Negative) 05/01/23 18:09 Urine Urobilinogen Norm mg/dL (Negative) 05/01/23 18:09 Ur Leukocyte Esterase 1+ (Negative) H 05/01/23 18:09 Urine RBC 0-4 /hpf (0-2) H 05/01/23 18:09 Urine WBC 5-10 /hpf (0-5) H 05/01/23 18:09 Ur Squamous Epith Cells 5-10 /hpf (0-5) H 05/01/23 18:09 Ur Transition Epith Cell 0-4 /hpf 05/01/23 18:09 Ur Renal Epithelial Cell Rare /hpf 05/01/23 18:09 Amorphous Sediment Trace /hpf 05/01/23 18:09 Urine Bacteria Trace /hpf (NONE) 05/01/23 18:09 Hyaline Casts 0-4 /lpf H 05/01/23 18:09 Urine Mucus 2+ /hpf 05/01/23 18:09 Discharge Plan Discharge Patient Disposition: Home Clinical Impression: UTI (urinary tract infection) Condition: Stable Prescriptions: New cefdinir 300 mg capsule 300 mg PO BID 5 Days Qty: 10 0RF No Action (DME) shower chair See Rx Instructions .Route .MEDSUPPLY Qty: 1 0RF Rx Instructions: As directed loratadine [Allergy Relief (loratadine)] 10 mg tablet 10 mg PO DAILY CPAP .Route .bedtime Rx Instructions: CPAP at night for sleep apnea aspirin 81 mg tablet,delayed release (DR/EC) 81 mg PO DAILY Qty: 90 1RF losartan 100 mg tablet See Rx Instructions .ROUTE .COMPLEX Qty: 90 1RF Dose Instruction: TAKE ONE TABLET BY MOUTH DAILY Rx Instructions: TAKE ONE TABLET BY MOUTH DAILY Viibryd 40 mg tablet See Rx Instructions .ROUTE .COMPLEX Qty: 90 1RF Dose Instruction: TAKE ONE TABLET BY MOUTH DAILY must administer with a meal/food Rx Instructions: TAKE ONE TABLET BY MOUTH DAILY must administer with a meal/food buspirone 5 mg tablet 5 mg PO TID Qty: 60 0RF metoprolol tartrate 25 mg tablet 25 mg PO BID Qty: 180 1RF albuterol sulfate 90 mcg/actuation HFA aerosol inhaler 2 puff inhalation Q6H PRN (Reason: shortness of breath or wheezing) Qty: 8.5 2RF oxycodone 10 mg tablet 10 mg PO BID PRN (Reason: pain) 30 Days Qty: 60 0RF Rx Instructions: Do not fill until 02/20/2023 oxycodone 10 mg tablet 10 mg PO BID PRN (Reason: pain) 30 Days Qty: 60 0RF Rx Instructions: Do not fill until 03/21/2023 oxycodone 10 mg tablet 10 mg PO BID PRN (Reason: pain) 30 Days Qty: 60 0RF Rx Instructions: Do not fill until 04/20/2023 ondansetron HCl [Zofran] 4 mg tablet 4 mg PO Q8H PRN (Reason: nausea and vomiting) Qty: 10 0RF (DME) Cpap mask and suppies See Rx Instructions .Route .MEDSUPPLY Qty: 1 0RF Rx Instructions: As directed atorvastatin 20 mg tablet See Rx Instructions .ROUTE .COMPLEX Qty: 90 2RF Dose Instruction: TAKE 1 TABLET BY MOUTH EVERY DAY Rx Instructions: TAKE 1 TABLET BY MOUTH EVERY DAY baclofen 10 mg tablet See Rx Instructions .ROUTE .COMPLEX Qty: 180 1RF Dose Instruction: TAKE ONE TABLET BY MOUTH TWICE DAILY NEEDED Rx Instructions: TAKE ONE TABLET BY MOUTH TWICE DAILY NEEDED potassium chloride [Klor-Con M20] 20 mEq tablet,ER particles/crystals 20 meq PO DAILY Qty: 90 1RF oxybutynin chloride 5 mg tablet 5 mg PO BID Qty: 180 1RF Rx Instructions: Please disregard the prior rx omeprazole 40 mg capsule,delayed release(DR/EC) See Rx Instructions .ROUTE .COMPLEX Qty: 180 0RF Dose Instruction: take 1 capsule BY MOUTH TWICE DAILY Rx Instructions: take 1 capsule BY MOUTH TWICE DAILY furosemide 20 mg tablet See Rx Instructions .ROUTE .COMPLEX Qty: 90 1RF Dose Instruction: TAKE 1 TABLET BY MOUTH EVERY DAY EVERY MORNING Rx Instructions: TAKE 1 TABLET BY MOUTH EVERY DAY EVERY MORNING amlodipine 10 mg tablet See Rx Instructions .ROUTE .COMPLEX Qty: 90 0RF Dose Instruction: TAKE 1 TABLET BY MOUTH EVERY DAY Rx Instructions: TAKE 1 TABLET BY MOUTH EVERY DAY levothyroxine 137 mcg tablet See Rx Instructions .ROUTE .COMPLEX Qty: 90 1RF Dose Instruction: TAKE 1 TABLET BY MOUTH EVERY DAY Rx Instructions: TAKE 1 TABLET BY MOUTH EVERY DAY Discharge Orders: Discharge ED (Routine); Ordered 05/01/23 Ordered By: Alaina Gloria Referrals: Kayla Mcfarlane DO [Primary Care Provider] - Discharge Diet: Usual diet Discharge Activity: Increase activity as tolerated Patient Instructions: Urinary Tract Infection in Women (ED), Flank Pain (ED) Activity Restrictions/Additional Instructions: Your imaging did not show any acute kidney stone or obstruction. We discussed the findings on your CT scan which can be followed up outpatient as directed by your primary care provider. Take antibiotics as directed to cover for urinary tract infection. Follow-up with primary care provider as already scheduled on Friday. Return to the ER as needed for any new or worsening symptoms. Coding Level of Care Code ED Broadcast Correspondent for Maisha Robison
[2023-05-01] MEDS: cefdinir 300 MG CAPSULE PO (20:16)
== END 2023-05-01 20:21 | disposition home or self-care (01) ==
PROVIDERS: Emergency Provider Nurse Practitioner Family; PCP Family Medicine
DX: N39.0 Urinary tract infection, site not specified (principal); Z79.82 Long term (current) use of aspirin; D35.02 Benign neoplasm of left adrenal gland; D35.01 Benign neoplasm of right adrenal gland; K57.30 Diverticulosis of large intestine without perforation or abscess without bleeding; Z72.0 Tobacco use; I10 Essential (primary) hypertension
CPT/HCPCS: 36415; 74176; 80053; 81001; 85025; 96360; 96361; 99284; J7030

== ENCOUNTER 2023-05-27 09:27 | Outpatient (CLI) | payer MEDICARE, SELFPAY ==
--- NOTE | 2023-05-27 09:45 | CT_ITS ---
WS: [id number] LDCT LUNG CANCER SCREENING TECHNIQUE: Noncontrast CT of the chest with coronal and sagittal reformatted images. CLINICAL INFORMATION: screen COMPARISON: None. DLP: 137.67 mGy.cm DIvol: Mean CTDIvol: 3.30 (mGy) All CT scans at [facility] use at least one of these dose optimization techniques: automat ed exposure control; mA and/or kV adjustment per patient size (includes targeted exams where dose is matched to clinical indication); or iterative reconstruction. FINDINGS: Calcified granuloma LEFT lower lobe. Moderate chronic emphysematous changes. 6 mm noncalcif ied nodule RIGHT middle lobe. Small opacity LEFT upper lobe laterally measuring 5 mm. No other suspic ious pulmonary parenchymal opacities. Aortic calcification. Coronary calcification. No axillary lymphadenopathy. No mediastinal or hilar ly mphadenopathy. Adrenal glands are normal. Small bilateral adrenal adenomas unchanged since 05/01/2023. Fatty atrophy of the pancreas. Normal GE junction. Partially visualized splenomegaly. Moderate thoracic kyphosis. No acute compression fractures. IMPRESSION: CT/CT lung screening [id number] LUNG-RADS: 2-Benign Appearance or Behavior FOLLOW UP: 12 Month: Continue annual screening with LDCT
== END 2023-05-27 09:28 | disposition home or self-care (01) ==
LOC: RAD 09:27
PROVIDERS: PCP Family Medicine; Visit Provider Family Medicine
DX: Z12.2 Encounter for screening for malignant neoplasm of respiratory organs (principal); F17.219 Nicotine dependence, cigarettes, with unspecified nicotine-induced disorders
CPT/HCPCS: 71271

== ENCOUNTER → 2023-06-03 11:44 | Outpatient (BNVA) | payer MEDICARE, SELFPAY | PROVIDERS: PCP Family Medicine; Visit Provider Nurse Practitioner | DX: R30.0 Dysuria (principal); N30.01 Acute cystitis with hematuria | CPT/HCPCS: 81000 ==

== ENCOUNTER → 2023-07-17 08:43 | Outpatient (BNVA) | payer MEDICARE, MEDICAID, SELFPAY | PROVIDERS: PCP Family Medicine; Visit Provider Orthopaedic Surgery | DX: M48.062 Spinal stenosis, lumbar region with neurogenic claudication (principal) | CPT/HCPCS: 72110; 99204 ==

== ENCOUNTER 2023-07-21 13:19 | Outpatient (CLI) | payer MEDICARE, MEDICAID, SELFPAY ==
--- NOTE | 2023-07-21 14:06 | XR_ITS ---
WS: [id number] XR chest 2V* [id number] REASON FOR EXAM: PRE OP TESTING/HYPERTENSION/SLEEP APNEA FINDINGS: No significant tortuosity or ectasia of the thoracic aorta and the normal normal heart size. Calcified granulomas disease in both hemithoraces. No acute/subacute pulmonary parenchymal or pleural abnormality. Moderate degenerative spondylosis in the mid and lower thoracic spine. Moderate dorsal kyphosis. IMPRESSION: No acute/subacute chest abnormality.
[2023-07-21 14:20] LABS: Basophils # 0.1 10^3/uL (0.0-0.1); Basophils % 0.7 %; Eosinophils # 0.3 10^3/uL (0.0-0.8); Eosinophils % 2.6 %; Lymphocytes # 2.5 10^3/uL (0.8-4.8); Lymphocytes % 24.4 %; Mean Corpuscular Hemoglobin 26.7 pg (27-33); Mean Corpuscular Volume 83.3 fl (85-98); Mean Platelet Volume 9.3 fL (7.4-10.4); Monocytes # 0.9 10^3/uL (0.2-0.9); Monocytes % 8.7 %; Neutrophils # 6.46 10^3/uL (1.8-7.7); Neutrophils % 63.1 %; Nucleated Red Blood Cells % 0 %; Platelet Count 252 10^3/cmm (157-399); Red Cell Distribution Width 15.7 % (12.1-15.1); White Blood Count 10.24 10^3/uL (3.29-11.43)
[2023-07-21 14:31] LABS: Bacteria Urine TRACE /hpf; Bilirubin Urine Neg (Negative); Blood Urine Neg (Negative); Glucose Urine UA Norm (Normal); Ketones Urine Negative (Negative); Leukocyte Esterase Urine Trace (Negative); Nitrate Urine Negative (Negative); Protein Urine Neg (Negative); Specific Gravity, Urine 1.015 (1.005-1.030); Squamous Epithelial Cell Urine 0-4 /hpf (0-5); Urine Appearance Clear (CLEAR); Urine Color Yellow (Yellow); Urobilinogen Urine Norm (Negative); WBC Urine 0-4 /hpf (0-5); pH Urine 5 (5-7)
[2023-07-21 14:32] LABS: Add Urine Culture? No
[2023-07-21 14:43] LABS: Anion Gap 12.4 (5-19); Blood Urea Nitrogen 18 mg/dL (8-23); Carbon Dioxide 25 mmol/L (22-29); Chloride 105 mmol/L (98-107); Glucose 71 mg/dL (65-115); Osmolality Calculated 288 mOsm/kg (285-295); Potassium 3.4 mmol/L (3.5-5.1); Sodium 139 mmol/L (136-145)
== END 2023-07-21 13:20 | disposition home or self-care (01) ==
PROVIDERS: PCP Family Medicine; Visit Provider Urology
DX: Z01.818 Encounter for other preprocedural examination (principal); G47.30 Sleep apnea, unspecified; R00.1 Bradycardia, unspecified; I10 Essential (primary) hypertension; Z72.0 Tobacco use
CPT/HCPCS: 36415; 71046; 80048; 81001; 85025; 93005

== ENCOUNTER 2023-08-12 10:42 | Outpatient (CLI) | payer MEDICARE, MEDICAID, SELFPAY ==
--- NOTE | 2023-08-12 11:00 | MR_ITS ---
WS: [id number] MRI LUMBAR SPINE NONCONTRAST TECHNIQUE: Sagittal T1, T2 and STIR imaging. Axial T1 and T2 imaging. CLINICAL INFORMATION: back pain COMPARISON: None. FINDINGS: Mild cervical curve. Disc bulging worse at L4-L5 and L5-S1. Evidence of prior remote laminectomy L4-5 . Shallow central protrusions on the can tender imaging at C6-7 and T2-3 L1-L2: Mild facet arthropathy. Spinal canal and foramen are patent. L2-L3: Mild annular bulging. Moderate facet arthropathy. Slight narrowing of the RIGHT subarticular r ecess. Foramen are patent. L3-L4: Minimal annular bulging. Moderate facet arthropathy. Spinal canal and foramen are patent. L4-L5: Mild disc bulging with a shallow central protrusion. Moderate to severe central canal stenosis with impingement traversing L5 nerve roots bilaterally. Moderate facet arthropathy. LEFT foraminal p rotrusion with severe LEFT foraminal narrowing. RIGHT foramen is patent. L5-S1: Mild disc bulging with osteophytic ridging. Impingement on the RIGHT S1 nerve root in the suba rticular recess. Moderate RIGHT foraminal narrowing. LEFT foramen is patent. Moderate facet arthropat hy. Visualized pelvic bony structures: Normal. Paravertebral soft tissues: Normal. IMPRESSION: 1. Mild lumbar curve. No acute compression. 2. Moderate to severe central canal stenosis L4-5 due to shallow central disc protrusion with facet arthropathy and ligamentum flavum hypertrophy. Impingement traversing L5 nerve roots bilaterally. 3. Moderate to severe LEFT L4-5 foraminal narrowing. 4. Disc bulge L5-S1 impinges the RIGHT S1 nerve root. Moderate RIGHT L5-S1 foraminal narrowing. 5. Slight narrowing of the RIGHT L2-3 subarticular recess. 6. Moderate facet arthropathy L4-L5 and L5-S1.
== END 2023-08-12 10:43 | disposition home or self-care (01) ==
LOC: RAD 10:42
PROVIDERS: PCP Family Medicine; Visit Provider Orthopaedic Surgery
DX: M48.061 Spinal stenosis, lumbar region without neurogenic claudication (principal); M51.27 Other intervertebral disc displacement, lumbosacral region; M48.062 Spinal stenosis, lumbar region with neurogenic claudication
CPT/HCPCS: 36415; 72148; 80053; 81001; 85025; 99214

== ENCOUNTER → 2023-08-20 09:50 | Outpatient (BNVA) | payer MEDICARE, SELFPAY | PROVIDERS: PCP Family Medicine; Visit Provider Family Medicine | DX: Z01.818 Encounter for other preprocedural examination (principal); Z79.899 Other long term (current) drug therapy | CPT/HCPCS: 80048; 81003; 85025; 87086 ==

== ENCOUNTER 2023-08-25 12:40 | Observation (INO) | payer MEDICARE, MEDICAID, SELFPAY ==
[2023-08-25] VITALS (25 sets, daily range): BP systolic 91–171; BP diastolic 54–109; PULSE 53–83; RESP 11–18; TEMP 36.2–37; O2SAT 90–98; BMI 38.7; BMI 39.7
--- NOTE | 2023-08-25 | XR_ITS ---
WS: [id number] C-ARM RADIOGRAPHS SPINE; 3 IMAGES HISTORY: VIOLET PICS COMPARISON: None available. Intraoperative imaging during spinal decompression. There is a marker indicating a level of the mid l umbar spine. IMPRESSION: Intraoperative imaging during spinal decompression.
--- NOTE | 2023-08-25 09:11 | W.PM.OPSUD ---
Surgery/Procedure H&P Update DATE OF PROCEDURE: August 25, 2023 DATE H&P PERFORMED: 08/12/23 H&P UPDATE INFORMATION: I have reviewed H&P completed within last 30 days, I have examined patient prior to procedure and No changes to prior documentation PREOP DIAGNOSIS: Lumbar stenosis with neurogenic claudication PLANNED PROCEDURE: Operation Date: 08/25/23 09:40 Proposed Procedures p Open Spine Decompression(Not Applicable) - Bubba Birch DO s Hardware Removal Lumbar(Not Applicable) - Bubba Birch DO
--- NOTE | 2023-08-25 09:23 | P.ANESASSM_ITS ---
Pre-Anesthetic Assessment Height/Weight: Height 1.6 m Weight 99.337 kg Temp Pulse Resp BP Pulse Ox O2 Del Method 98.6 F 55 L 18 142/95 96 Room Air 08/25/23 08:12 08/25/23 08:12 08/25/23 08:12 08/25/23 08:12 08/25/23 08:12 08/25/23 08:18 Preop Diagnosis: Lumbar stenosis with neurogenic claudication Operation Date: 08/25/23 09:40 Proposed Procedures p Open Spine Decompression(Not Applicable) - Bubba Birch DO s Hardware Removal Lumbar(Not Applicable) - Bubba Birch DO Familial anesthetic complications: None Was Beta Catrachita taken within 24 hours: Yes Was Clonidine taken within 24 hours: N/A Last intake: Intake Last Liquid Date 08/24/23 Last Liquid Time 21:00 Last Solid Date 08/24/23 Last Solid Time 21:00 Social Tobacco and No alcohol encouraged smoking cessation and f/u w/ PCP for guidance Exam alert, oriented x 3, clear to auscultation bilaterally and regular rate & rhythm Airway Mallampati: Class III Dentition: false Pulmonary Sleep Apnea CV/HEM Arrythmia (william) and Hypertension Metabolic Hyperlipidemia, Morbid Obesity and Thyroid Disease Anesthetic Plan ASA status: 3 Anesthesia: General Risk of > 500 ml blood loss (7ml/kg in children): No Medications/Allergies Home Medications Medication Instructions Recorded Confirmed Last Taken Type CPAP .Route .bedtime 03/15/21 08/12/23 Unknown History shower chair #1 ea 04/26/21 08/12/23 Unknown Rx Cpap mask and suppies #1 ea 07/26/21 08/12/23 Unknown Rx aspirin 81 mg tablet,delayed 81 mg PO DAILY #90 tabs 11/01/21 08/22/23 08/18/23 Rx release albuterol sulfate 90 mcg/actuation 2 puff inhalation Q6H PRN 02/18/23 08/25/23 Unknown Rx aerosol inhaler shortness of breath or wheezing #8.5 grams metoprolol tartrate 25 mg tablet 25 mg PO BID #180 tabs 05/20/23 08/22/23 08/25/23 Rx ondansetron HCl 8 mg tablet 8 mg PO Q8H PRN nausea and 07/31/23 08/22/23 Unknown Rx vomiting #10 tabs ciprofloxacin HCl 500 mg tablet 500 mg PO BID 7 days #14 tabs 08/12/23 08/22/23 Unknown Rx oxycodone 10 mg tablet 10 mg PO BID PRN pain 30 days #60 08/15/23 08/22/23 08/21/23 Rx tabs amlodipine 10 mg tablet 10 mg PO DAILY 08/22/23 08/22/23 08/25/23 History atorvastatin 20 mg tablet 20 mg PO DAILY 08/22/23 08/22/23 08/24/23 History baclofen 10 mg tablet 10 mg PO BID PRN Pain 08/22/23 08/22/23 08/24/23 History furosemide 20 mg tablet 20 mg PO DAILY 08/22/23 08/22/23 08/24/23 History levothyroxine 137 mcg tablet 137 mcg PO DAILY 08/22/23 08/22/23 08/25/23 History losartan 100 mg tablet 100 mg PO DAILY 08/22/23 08/22/23 08/22/23 History omeprazole 40 mg capsule,delayed 40 mg PO BID 08/22/23 08/22/23 08/24/23 History release potassium chloride 20 mEq 20 meq PO DAILY 08/22/23 08/22/23 08/22/23 History tablet,extended release(part/cryst) vilazodone 40 mg tablet (Viibryd) 40 mg PO DAILY 08/22/23 08/22/23 08/22/23 History Allergies Allergy/AdvReac Type Severity Reaction Status Date / Time celecoxib [From Celebrex] Allergy itching Verified 08/22/23 12:44 gabapentin Allergy Unknown Verified 08/22/23 12:44 morphine Allergy extreme Verified 08/22/23 12:44 itching Sulfa (Sulfonamide Allergy itching Verified 08/22/23 12:44 Antibiotics) [facility] Anesthesia Medical History Carpal tunnel syndrome, bilateral Depression Hypothyroidism Essential hypertension Degenerative disc disease Lumbar spine Osteoarthritis CASE (obstructive sleep apnea) Uses a CPAP Hypercholesteremia GERD (gastroesophageal reflux disease) Surgical History S/P cholecystectomy H/O: hysterectomy Total History of appendectomy History of tonsillectomy History of hernia repair Right inguinal History of carpal tunnel surgery of left wrist History of carpal tunnel surgery of right wrist Status post left rotator cuff repair Status post medial meniscus repair of right knee Hx of right heart catheterization Family History Mother Cancer, Onset Age: 80 lung cancer Hyperthyroidism COPD (chronic obstructive pulmonary disease) Father Cancer, Onset Age: 56 prostate Social History Smoking and tobacco/nicotine status: current every day tobacco/nicotine user Second hand smoke exposure: No Alcohol intake: former Former alcohol use details: occasional social drinker Substance/Drug Use: never Adopted: No Caregiver/support person: Yes Lives independently: Yes Household members: children Housing: House Marital status: Number of children: 3 Highest education level completed: GED or Equivalent service: No Current occupational status: retired Pets and animals: Yes Pets & animals: dog(s) Current gender identity: Female Data Anesthesia Cardiac Studies: Cardiac Event Monitor 05/22/22
[2023-08-25] MEDS: ceFAZolin 2,000 MG in sodium chloride 0.9% (plus) 50 ML 100 MG IV ×2 (09:55→17:34)
[2023-08-25] MEDS: lidocaine-epi 1% 20 mL INJ INJECTION (10:32)
--- NOTE | 2023-08-25 11:58 | PM.OP ---
Operative Report Date of procedure: August 25, 2023 Pre-op diagnosis: Lumbar stenosis with neurogenic claudication Post-op diagnosis: same Procedure done: 1. L4-5 laminectomy with partial facetectomies 2. L5-S1 laminectomy with partial facetectomies 3. Removal of deep hardware from spine (inter- spinous process X-Stop device) Surgeon: Bubba Birch DO Estimated blood loss (mL): 150 Procedure: 1. L4-5 laminectomy with partial facetectomies 2. L5-S1 laminectomy with partial facetectomies 3. Removal of deep hardware from spine (inter- spinous process X-Stop device) patient is brought to the operative suite after undergoing anesthesia was placed in the prone position. All areas impingement well-padded. Patient's prepped draped normal sterile fashion. Skin incision made using previous skin incision. Subperiosteal dissection was made out to the facet joints of L4-5 and L5-S1. Retractors were placed. Attention was first brought to removing the interspinous process device this was done using a rongeur. The spinous processes of L4 and L5 were taken out. This allowed for direct visualization of the X-Stop device. The metal device was then removed. Next attention was brought to the L5-S1 location. The lamina of L5 was taken down with a high-speed bur. The medial aspect of the facet joints were taken down with a high-speed bur bilaterally. And then the Kerrison rongeur was then used to take down the remaining lamina as well as the remaining medial aspect of facet joints. Then the ligamentum flavum was taken down from L5-S1 the L5 nerve roots were traced out the L5-S1 foramens. In the S1 nerve was traced around the S1 pedicles bilaterally. Next attention was brought to the L4-5 location. The lamina of L4 was taken down using high-speed bur as well as the medial aspect of the facet joints were taken down bilaterally L4-5. The Kerrison rongeur was then used to take the remaining lamina of L4-5 facets and lamina. This was done bilaterally. The ligamentum flavum was taken down from L4-L5 as well. The L4 nerves were traced out the L4-5 foramen and the L5 nerves were traced around the L5 pedicle. Wounds were irrigated deep drain was placed and wound was closed in layered fashion with 0 Vicryl 2-0 Vicryl Monocryl suture. Sterile dressings applied patient transferred to PACU in stable condition.
[2023-08-25] MEDS: sodium chloride 0.9% 1,000 ML 30 ML IV (12:14)
[2023-08-25] MEDS: fentaNYL 50 mcg/mL INJ 2mL IVP ×2 (12:14→12:25)
--- NOTE | 2023-08-25 12:55 | ANE.PACU2 ---
Inpatient post-anesthesia follow up: Airway intact: Yes Vital signs: Temperature 97.4 F Pulse Rate 63 Respiratory Rate 16 Blood Pressure 126/55 Pulse Oximetry 92 Oxygen Delivery Me thod Room Air Oxygen Flow Rate 4 Fraction of Inspir ed Oxygen Hydration adequate: Yes Nausea and vomiting: No Pain level: 1 Mental status: Baseline
[2023-08-25] MEDS: ondansetron 2 mg/ML SDV 2 mL 4 MG IVP (13:15)
[2023-08-25] MEDS: ketorolac 30 mg/mL INJ IVP (13:19)
[2023-08-25] MEDS: lactated ringers 1,000 ML 90 ML IV (13:21)
[2023-08-25] MEDS: oxyCODONE-APAP 10-325 mg Tablet PO ×2 (15:06→21:44)
[2023-08-25] MEDS: docusate sodium 100 mg Capsule PO (17:37)
[2023-08-25] MEDS: ciprofloxacin 500 mg Tablet PO (17:37)
[2023-08-25] MEDS: metoprolol tartrate 25 mg Tablet PO (17:37)
[2023-08-25] MEDS: pantoprazole DR 40 mg Tablet PO (17:38)
[2023-08-26] MEDS: lactated ringers 1,000 ML 90 ML IV (00:15)
[2023-08-26] MEDS: ceFAZolin 2,000 MG in sodium chloride 0.9% (plus) 50 ML 100 MG IV ×2 (03:39→10:34)
[2023-08-26 04:12] VITALS: BP 125/60; PULSE 78; RESP 16; TEMP 36.8; O2SAT 93
[2023-08-26 05:38] VITALS: PULSE 71
--- NOTE | 2023-08-26 07:49 | PM.DCS ---
Discharge Providers Date of Admission: 08/25/23 12:40 Date of Discharge: August 26, 2023 Attending Provider at Admission: Bubba Birch DO Attending Provider at Discharge: Bubba Birch DO Primary Care Provider: Kayla Mcfarlane DO Reason for Visit Reason for Visit: M48.062 Physical Exam Narrative: Doing well no complaints Discharge Data Studies Completed and Pending Pending at discharge Category Date Time Status C-arm Fluoroscopy [id number] Routine Exams 08/25/23 07:56 Taken Vitals Last Vital Signs Temp 98.2 F 08/26/23 04:12 Pulse 71 08/26/23 05:38 Resp 16 08/26/23 04:12 BP 125/60 08/26/23 04:12 Pulse Ox 93 08/26/23 04:12 O2 Del Method Room Air 08/25/23 18:00 O2 Flow Rate 4 08/25/23 12:45 Discharge Plan Discharge Patient Disposition: Home Condition: Stable Prescriptions: New oxycodone 10 mg tablet 10 mg PO QID PRN (Reason: pain) 7 Days Qty: 40 0RF Continued (DME) shower chair See Rx Instructions .Route .MEDSUPPLY Qty: 1 0RF Rx Instructions: As directed CPAP .Route .bedtime Rx Instructions: CPAP at night for sleep apnea aspirin 81 mg tablet,delayed release (DR/EC) 81 mg PO DAILY Qty: 90 1RF ciprofloxacin HCl 500 mg tablet 500 mg PO BID 7 Days Qty: 14 0RF albuterol sulfate 90 mcg/actuation HFA aerosol inhaler 2 puff inhalation Q6H PRN (Reason: shortness of breath or wheezing) Qty: 8.5 2RF metoprolol tartrate 25 mg tablet 25 mg PO BID Qty: 180 1RF (DME) Cpap mask and suppies See Rx Instructions .Route .MEDSUPPLY Qty: 1 0RF Rx Instructions: As directed ondansetron HCl 8 mg tablet 8 mg PO Q8H PRN (Reason: nausea and vomiting) Qty: 10 0RF oxycodone 10 mg tablet 10 mg PO BID PRN (Reason: pain) 30 Days Qty: 60 0RF Rx Instructions: Do not fill until 08/18/2023 levothyroxine 137 mcg tablet 137 mcg PO DAILY Rx Instructions: TAKE 1 TABLET BY MOUTH EVERY DAY atorvastatin 20 mg tablet 20 mg PO DAILY Rx Instructions: TAKE 1 TABLET BY MOUTH EVERY DAY omeprazole 40 mg capsule,delayed release(DR/EC) 40 mg PO BID Rx Instructions: take 1 capsule BY MOUTH TWICE DAILY potassium chloride 20 mEq tablet,ER particles/crystals 20 meq PO DAILY Rx Instructions: TAKE ONE TABLET BY MOUTH EVERY DAY baclofen 10 mg tablet 10 mg PO BID PRN (Reason: Pain) Rx Instructions: TAKE 1 TABLET BY MOUTH TWICE DAILY NEEDED amlodipine 10 mg tablet 10 mg PO DAILY Rx Instructions: TAKE 1 TABLET BY MOUTH EVERY DAY furosemide 20 mg tablet 20 mg PO DAILY Rx Instructions: TAKE 1 TABLET BY MOUTH EVERY DAY EVERY MORNING losartan 100 mg tablet 100 mg PO DAILY Rx Instructions: TAKE 1 TABLET BY MOUTH EVERY DAY Viibryd 40 mg tablet 40 mg PO DAILY Rx Instructions: TAKE 1 TABLET BY MOUTH EVERY DAY. MUST TAKE WITH MEAL/FOOD Patient Instructions: Opioid Safety Discharge Attestations Time Spent in Discharge Care*: less than 30 min Quality Metrics Clinical Quality Measures [ No reported AMI, CVA or VTE this stay] Coding Level of Care Code Acute Code for Maisha Robison
[2023-08-26] MEDS: ciprofloxacin 500 mg Tablet PO (07:55)
[2023-08-26] MEDS: levothyroxine 137 mcg Tablet PO (07:55)
[2023-08-26] MEDS: pantoprazole DR 40 mg Tablet PO (07:55)
[2023-08-26 07:56] VITALS: BP 125/60
[2023-08-26] MEDS: metoprolol tartrate 25 mg Tablet PO (07:56)
[2023-08-26] MEDS: atorvastatin 40 mg Tablet 20 MG PO (07:56)
[2023-08-26] MEDS: aspirin 81 mg EC Tablet PO (07:56)
[2023-08-26] MEDS: losartan 50 mg Tablet 100 MG PO (07:56)
[2023-08-26] MEDS: FUROsemide 20 mg Tablet PO (07:57)
[2023-08-26] MEDS: amlodipine 10 mg Tablet PO (07:57)
[2023-08-26] MEDS: docusate sodium 100 mg Capsule PO (07:57)
[2023-08-26] MEDS: potassium chloride ER 20 mEq Tablet PO (07:58)
--- NOTE | 2023-08-26 08:32 | PC.PHAR ---
pt states she takes care of her own medications-pt states she is no longer taking oxybutynin 5mg bid ext shows last filled 06/17/23 90d/s
[2023-08-26 09:21] VITALS: BP 146/74; PULSE 69; RESP 18; TEMP 36.7; O2SAT 93
--- NOTE | 2023-08-26 09:27 | PC.CHAP ---
Pastoral Care Encounter/Spiritual Assessment Type of Contact [] Declined weigh machine operator visit [] Patient/Family/Request visit [] Outpatient visit [] Follow-up visit [] Physician referral [] Code/Alert [x] Routine visit [] Staff referral [] Actively dying [] Patient sleeping [] Family support [] [] Out of room [] Palliative care [] [] Receiving care in room [] Pre-surgical visit [] Trauma [] Long length of stay [] ICU visit [] Other: Relational/Emotional Strength [x] Patient feels connected with others/family/visitors/staff [] Distress [] Loneliness/isolation [] Abandonment Spirituality of Patient [x] Person of Nathalia [] Attends Mandaeism of their Nathalia [x] Believes in Prayer [] Reads Bible or Worship materials [] There are Spiritual issues to be addressed Nephrology Nurse Interventions [x] Prayer [x] Active listening [] Non-anxious presence [x] Spiritual/emotional support [] Crisis/trauma care [] Spiritual counseling [] Bereavement support [] Provided bereavement packet [] Provided Bible/devotional materials [] Provided toy/stuffed animal, coloring book to patient or family member [] Provided Communion [] Anointing/Tell [] Salvation [x] Completed spiritual assessment [] Other: Impact on Illness or Injury [] Angry [] Fearful [] Anxious [] Often cries [] Exhaustion [] Unable to work [] Unable to attend latter day [] Unable to walk/stand [] Unable to read [] Unable to drive [] Unable to eat/drink [] Unable to sleep [] Unable to be with family [] Patient intubated [] Other: Summary Time spent with patient 5 min
[2023-08-26 10:35] VITALS: RESP 17
[2023-08-26] MEDS: oxyCODONE-APAP 10-325 mg Tablet PO (10:35)
[2023-08-26 12:31] VITALS: RESP 17
== END 2023-08-26 12:32 | disposition home or self-care (01) ==
LOC: MEDSURG 12:40
PROVIDERS: Admitting Provider Orthopaedic Surgery; PCP Family Medicine; Visit Provider Orthopaedic Surgery
PROC: (CPT 63001; principal; 2023-08-25 09:20)
PROC: (CPT 20680; 2023-08-25 09:20)
DX: M48.062 Spinal stenosis, lumbar region with neurogenic claudication (principal); I10 Essential (primary) hypertension; E78.5 Hyperlipidemia, unspecified; E66.01 Morbid (severe) obesity due to excess calories; Z68.39 Body mass index [BMI] 39.0-39.9, adult; Z79.82 Long term (current) use of aspirin; G47.33 Obstructive sleep apnea (adult) (pediatric); E78.00 Pure hypercholesterolemia, unspecified; K21.9 Gastro-esophageal reflux disease without esophagitis; F17.210 Nicotine dependence, cigarettes, uncomplicated
CPT/HCPCS: 20680; 63047; 63048; 72100; 76000; 97161; 97530; G0378; J0690; J1100; J1885; J2405; J2704; J2710; J3010; J3490; J7030; J7120

== ENCOUNTER → 2023-09-02 13:23 | Outpatient (BNVA) | payer MEDICARE, SELFPAY | PROVIDERS: PCP Family Medicine; Visit Provider Orthopaedic Surgery | DX: Z98.890 Other specified postprocedural states (principal) | CPT/HCPCS: 99024 ==

== ENCOUNTER → 2023-09-09 13:10 | Outpatient (BNVA) | payer MEDICARE, SELFPAY | PROVIDERS: PCP Family Medicine; Visit Provider Orthopaedic Surgery | DX: M48.062 Spinal stenosis, lumbar region with neurogenic claudication (principal) | CPT/HCPCS: 99024 ==

== ENCOUNTER → 2023-09-23 10:36 | Outpatient (BNVA) | payer MEDICARE, SELFPAY | PROVIDERS: PCP Family Medicine; Visit Provider Family Medicine | DX: E78.00 Pure hypercholesterolemia, unspecified (principal); E03.9 Hypothyroidism, unspecified; N39.41 Urge incontinence; M51.36 Other intervertebral disc degeneration, lumbar region; K21.9 Gastro-esophageal reflux disease without esophagitis; I10 Essential (primary) hypertension; F33.42 Major depressive disorder, recurrent, in full remission | CPT/HCPCS: 80053; 80061; 84443 ==

== ENCOUNTER → 2023-10-07 12:52 | Outpatient (BNVA) | payer MEDICARE, SELFPAY | PROVIDERS: PCP Family Medicine; Visit Provider Orthopaedic Surgery | DX: Z98.890 Other specified postprocedural states (principal) | CPT/HCPCS: 99024 ==

== ENCOUNTER → 2024-04-13 15:30 | Outpatient (BNVA) | payer MEDICARE, SELFPAY | PROVIDERS: PCP Family Medicine; Visit Provider Family Medicine | DX: I10 Essential (primary) hypertension (principal); R06.09 Other forms of dyspnea; R60.0 Localized edema; F17.219 Nicotine dependence, cigarettes, with unspecified nicotine-induced disorders | CPT/HCPCS: 80048; 83880; 85025 ==

== ENCOUNTER 2024-06-02 11:37 | Outpatient (CLI) | payer MEDICARE, SELFPAY ==
--- NOTE | 2024-06-02 12:00 | CT_ITS ---
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 Coronal and sagittal reformats are submitted with axial MIP series. All CT scans at [facility] use at least one of these dose optimization techniques: automated exposure control; mA and/or kV adjustment per patient size (includes targeted exams where dose is matched to clinical indication); or iterativ e reconstruction. DLP: 151.52 mGy.cm DIvol: Mean CTDIvol: 4.30 (mGy) COMPARISON: 05/27/2023 Diagnostic quality: Satisfactory Lungs: Decreased lung volumes due to poor inspiration. Diffuse hazy attenuation throughout both lungs with improved with better inspiration. Previously described LEFT upper lobe nodule measuring 5 mm is increased in size. This nodule is now ovoid shaped with a maximum diameter of 12 mm. Stable calcifie d granuloma LEFT lower lobe. No change in the noncalcified 6 mm RIGHT middle lobe nodule. Chronic emp hysematous changes. Heart: Normal size heart with no pericardial effusion.. Moderate coronary artery calcifications. Other findings: Mildly dilated pulmonary artery from pulmonary hypertension. Mild atherosclerosis aor ta. Mediastinal and hilar lymph nodes. Inferior RIGHT paratracheal lymph node is enlarged at 16 mm bu t stable. LEFT hilar calcified nodules. Suprarenal aortic calcifications. Bilateral adrenal gland thi ckening with negative Hounsfield units consistent with small adenomas. Additional heterogeneous atten uation throughout the liver. No mass. Mild increase in thoracic kyphosis. CT/CT lung screening [id number] IMPRESSION: LUNG-RADS: 4B-Suspicious FOLLOW UP: PET/CT recommended OTHER FINDINGS (S MODIFIER): None. Increasing in size LEFT upper lobe pulmonary nodule. Nodules increased from 5 t o 12 mm. PET/CT recommended at this time. Indeterminate but stable inferior RIGHT paratracheal lymph node.
== END 2024-06-02 11:38 | disposition home or self-care (01) ==
PROVIDERS: PCP Family Medicine; Visit Provider Family Medicine
DX: Z12.2 Encounter for screening for malignant neoplasm of respiratory organs (principal); F17.219 Nicotine dependence, cigarettes, with unspecified nicotine-induced disorders; J84.10 Pulmonary fibrosis, unspecified; R91.8 Other nonspecific abnormal finding of lung field; J43.9 Emphysema, unspecified; I27.20 Pulmonary hypertension, unspecified; R59.0 Localized enlarged lymph nodes; I70.0 Atherosclerosis of aorta; D35.00 Benign neoplasm of unspecified adrenal gland; R93.2 Abnormal findings on diagnostic imaging of liver and biliary tract
CPT/HCPCS: 71271

== ENCOUNTER 2024-06-11 10:39 | Outpatient (CLI) | payer MEDICARE, SELFPAY ==
--- NOTE | 2024-06-11 07:20 | PETR_ITS ---
PROCEDURE INFORMATION: Exam: PET/CT Skull Base to Mid-thigh Exam date and time: 06/11/2024 12:17 PM Age: 73 years old Clinical indication: Abnormal findings; Left upper lobe lung nodule 12mm LABS AND CLINICAL REPORTS: Glucose: 87 mg/dl Treatment strategy for malignancy (PET staging): Initial Staging (PI) TECHNIQUE: Imaging protocol: Following at least four-hour fasting and following the injection of radiopharmaceutical, low dose CT images were obtained. Then, PET images were obtained. Attenuation corrected images were constructed using the CT scan. Fused images of PET and CT were reviewed. The standardized uptake values (SUV) reported below are maximum values within a region of interest, expressed in gm/ml. Exam includes orbital meatal line to mid-thigh. SUV normalization method: BodyWeight Radiopharmaceutical: 11.85 mCi F-18 FDG (Fluorodeoxyglucose), IV. Time of imaging post radiopharmaceutical administration: 52 minutes Injection site: LEFT COMPARISON: 1. CT lung screening [id number] 06/02/2024 12:[address] lung screening [id number] 05/27/2023 9:[address] kidney stone [id number] 05/01/2023 6:05 PM FINDINGS: Brain: Visualized brain has normal physiologic uptake. Pharynx: No abnormal uptake. Larynx: No abnormal uptake. Lungs, pleura and trachea: FDG avid left upper lobe nodule measures 1.2 x 0.5 cm on axial image 87 and shows SUV max 6.2. Left lower lobe calcified granuloma. Heart: Normal physiologic uptake. Coronary arteries: Mild coronary artery calcification. Mediastinal space: No abnormal uptake. Liver: No abnormal uptake. Gallbladder and biliary ducts: No abnormal uptake. Prior cholecystectomy. Pancreas: No abnormal uptake. Spleen: No abnormal uptake. Adrenal glands: No abnormal uptake. Kidneys and ureters: Normal physiologic uptake. Stomach and bowel: No abnormal uptake. Colonic diverticulosis without findings of diverticulitis. Reproductive: The uterus is surgically absent. Vasculature: No abnormal uptake. Heavy systemic atherosclerotic calcification without aortic aneurysm. Lymph nodes: No abnormal uptake. No lymphadenopathy in the head, neck, chest, abdomen, pelvis, and extremities. Calcified left hilar nodes in keeping with sequela of old granulomatous disease. Skeleton: Focal FDG uptake at lateral right femoral shaft cortex shows SUV max 3.6 on axial image [address] abnormality. Degenerative changes along the spine. Lower lumbar spine laminectomies. Soft tissues: No abnormal uptake in the visualized head, neck, chest, abdomen, pelvis, and extremities. Small fat containing ventral abdominal wall hernias. Right ventral abdominal wall postsurgical change. METRICS: Mediastinal blood pool: SUV mean 2.0 Liver uptake: SUV mean 2.8 PET/PET skull to thigh INIT [id number] IMPRESSION: 1. FDG avid 1.2 cm left upper lobe nodule suspicious for malignancy. 2. Focal mild FDG uptake at lateral right femoral shaft cortex without underlying CT abnormality. Recommend further evaluation with MRI.
== END 2024-06-11 10:40 | disposition home or self-care (01) ==
PROVIDERS: PCP Family Medicine; Visit Provider Family Medicine
DX: R91.1 Solitary pulmonary nodule (principal); J98.4 Other disorders of lung; I25.10 Atherosclerotic heart disease of native coronary artery without angina pectoris; Z90.49 Acquired absence of other specified parts of digestive tract; K57.90 Diverticulosis of intestine, part unspecified, without perforation or abscess without bleeding; Z98.890 Other specified postprocedural states; I70.0 Atherosclerosis of aorta; D71 Functional disorders of polymorphonuclear neutrophils; G31.89 Other specified degenerative diseases of nervous system; K43.9 Ventral hernia without obstruction or gangrene
CPT/HCPCS: 78815; A9552

== ENCOUNTER 2024-06-17 12:11 | Outpatient (CLI) | payer MEDICARE, MEDICAID, SELFPAY ==
--- NOTE | 2024-06-17 12:24 | MM_ITS ---
WS: [id number] BILATERAL SCREENING DIGITAL TOMOSYNTHESIS MAMMOGRAM WITH CAD HISTORY: SCREENING COMPARISON: 08/26/2022, 12/31/2019 Bilateral CC and MLO views with tomosynthesis and synthetic mammography submitted. Computer aided det ection analyzed. Breast composition: There are scattered areas of fibroglandular density. No suspicious masses, microc alcifications or architectural distortion. Scattered benign calcifications in each breast. MM/MM scr BI tomosynthesis [id number] IMPRESSION: BI-RADS: 2 - Benign. FOLLOW UP: 1 Year Follow-up
--- NOTE | 2024-06-17 12:24 | XR_ITS ---
WS: [id number] DEXA (DUAL ENERGY X-RAY ABSORPTIOMETRY) Bone mineral density was performed using a [employer] machine. HISTORY: POSTMENOPAUSAL COMPARISON: None available. Lumbar spine BMD (L1-L4): 1.048 g/cm2 T score: -1.1 Z score: -0.6 Total hip BMD: Left: 0.758 g/cm2. T score: -2.0 Z score: -1.3 Right: 0.829 g/cm2. T score: -1.4 Z score: -0.7 10 year probability of a major osteoporotic fracture is 28.1%. XR/XR DEXA axial skeleton* [id number] IMPRESSION: OSTEOPENIA based upon the WHO classification for females.
== END 2024-06-17 12:12 | disposition home or self-care (01) ==
LOC: RAD 12:19
PROVIDERS: PCP Family Medicine; Visit Provider Family Medicine
DX: Z12.31 Encounter for screening mammogram for malignant neoplasm of breast (principal); R92.323 Mammographic fibroglandular density, bilateral breasts; R92.1 Mammographic calcification found on diagnostic imaging of breast; M85.89 Other specified disorders of bone density and structure, multiple sites
CPT/HCPCS: 77063; 77067; 77080

== ENCOUNTER 2024-06-22 08:16 | Outpatient (CLI) | payer MEDICARE, MEDICAID, SELFPAY ==
--- NOTE | 2024-06-22 08:45 | MR_ITS ---
WS: [id number] MRI OF THE RIGHT FEMUR WITHOUT GADOLINIUM ENHANCEMENT. INDICATION: Abnormal FDG PET TECHNIQUE: MRI of the RIGHT femur without gadolinium enhancement. Coronal T1, sagittal T1, coronal ST IR, sagittal STIR, axial T2 fat-sat, axial PD fat-sat. FINDINGS: Comparison PET CT 06/11/2024 No focal abnormality to correspond to the FDG avid uptake in the mid RIGHT femoral shaft laterally. P atchy normal variant heterogeneous bone marrow signal is seen in the femoral shaft. No abnormal lesio ns visualized in the femoral shaft. Gadolinium not administered. No other suspicious findings. MR/MR femur RT wo con* [id number] IMPRESSION: No findings to correspond to the prior FDG focus of uptake in the mid RIGHT lat eral femoral shaft.
== END 2024-06-22 08:17 | disposition home or self-care (01) ==
LOC: RAD 08:16
PROVIDERS: PCP Family Medicine; Visit Provider Family Medicine
DX: Q74.2 Other congenital malformations of lower limb(s), including pelvic girdle (principal)
CPT/HCPCS: 73718

== ENCOUNTER 2024-07-08 09:57 | Emergency (ER) | payer MEDICARE, MEDICAID, SELFPAY ==
--- NOTE | 2024-07-08 10:06 | ECG_ITS ---
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 Measurements Intervals [place] Rate: 71 P: 57 VT: 180 QRS: 46 QRSD: 96 T: 31 QT: 350 QTc: 382 Interpretive Statements SINUS RHYTHM NONSPECIFIC T-WAVE ABNORMALITY Compared to ECG 07/21/2023 16:11:13 Sinus bradycardia no longer present T-wave abnormality still present Electronically Signed On 07-09-2024 09:03:13 SURGICAL NURSE PRACTITIONER by Rush Velez M.D. [email or web address]
[2024-07-08 10:11] VITALS: BP 186/72; PULSE 63; RESP 18; TEMP 36.6; O2SAT 95; BMI 45.1
--- NOTE | 2024-07-08 10:11 | XR_ITS ---
WS: [id number] Portable AP upright chest, 07/08/2024 Clinical Data: sob Comparison: Two-view chest, 07/21/2023 Findings: There is patchy opacity in the retrocardiac region extending to the lateral left lower pleu ra. The remainder of the lungs shows no patchy opacities. No nodules, masses or effusions are seen. T he heart is normal. The pulmonary vascularity is not increased. No pneumothorax is seen. The aortic arch shows minimal calcification. XR/XR chest 1V portable [id number] Impression: 1. Patchy opacity in retrocardiac region which could represent atelectasis and/ or pneumonia. 2. No change in atherosclerosis.
--- NOTE | 2024-07-08 10:14 | W.ED.SOB ---
HPI - SOB/Dyspnea General: Chief Complaint: Chest Pain Stated Complaint: Chest Pain/SOB Time Seen by Provider: 07/08/24 10:06 History of Present Illness: HPI Narrative: 74-year-old female presents with shortness of breath. Patient has chronic shortness of breath but reports that she has had a hard time in the last day or 2 catching her breath. Mild increased cough, no fever. Bit chest discomfort with deep breath and cough. Associated symptoms: Deny abdominal pain, nausea or palpitations Related Data Home Medications Medication Instructions Recorded Confirmed amlodipine 10 mg tablet 10 mg PO DAILY 07/08/24 07/08/24 omeprazole 40 mg capsule,delayed 40 mg PO BID 07/08/24 07/08/24 release trazodone 50 mg tablet 50 - 100 mg PO QPM 07/08/24 07/08/24 Previous Rx's Medication Instructions Recorded shower chair #1 ea 04/26/21 Cpap mask and suppies #1 ea 07/26/21 aspirin 81 mg tablet,delayed 81 mg PO DAILY #90 tabs 11/01/21 release baclofen 10 mg tablet 10 mg PO Q6H PRN muscle spasm 30 01/15/24 days #120 tabs albuterol sulfate 90 mcg/actuation 2 puff inhalation Q6H PRN 02/23/24 aerosol inhaler shortness of breath or wheezing #8.5 grams fluticasone fur. 100 mcg-umeclid 1 inh inhalation DAILY #60 ea 04/14/24 62.5 mcg-vilant 25 mcg inhalat.powder (Trelegy Ellipta) furosemide 20 mg tablet 20 mg PO BID #180 tabs 04/14/24 potassium chloride 20 mEq 20 meq PO BID #180 tabs 04/14/24 tablet,extended release(part/cryst) aripiprazole 2 mg tablet (Abilify) 2 mg PO DAILY #90 tabs 05/07/24 levothyroxine 137 mcg tablet 137 mcg PO DAILY #90 tabs 05/07/24 losartan 100 mg tablet 100 mg PO DAILY #90 tabs 05/07/24 metoprolol tartrate 25 mg tablet 25 mg PO BID #180 tabs 05/07/24 vilazodone 40 mg tablet (Viibryd) 40 mg PO DAILY #90 tabs 05/07/24 atorvastatin 20 mg tablet 20 mg PO DAILY #90 tabs 06/19/24 oxycodone 5 mg tablet 5 mg PO Q6H PRN pain 30 days #90 07/01/24 tabs albuterol sulfate 2.5 mg/3 mL 2.5 mg (3 mL) inhalation Q4H PRN 07/08/24 (0.083 %) solution for nebulization shortness of breath or wheezing #180 mL azithromycin 250 mg tablet See Rx Instructions PO .COMPLEX #6 07/08/24 (Zithromax Z-Krishan) tabs compressor, for nebulizer #1 ea 07/08/24 prednisone 20 mg tablet 40 mg (2 x 20 mg) PO DAILY 3 days 07/08/24 #6 tabs Allergies Allergy/AdvReac Type Severity Reaction Status Date / Time celecoxib [From Celebrex] Allergy itching Verified 06/30/24 09:16 gabapentin Allergy Unknown Verified 06/30/24 09:16 morphine Allergy extreme Verified 06/30/24 09:16 itching Sulfa (Sulfonamide Allergy itching Verified 06/30/24 09:16 Antibiotics) Review of Systems Card: Reports: edema; Denies: palpitations or irregular heart rhythm Resp: Reports: dyspnea, non-productive cough and pain on inspiration GI: Denies: abdominal pain or nausea Skin/Breast: Denies: rash PFSH ED PFSH: Medical History Left upper lobe pulmonary nodule on CT screen and PET-suspicious; IR says they can't do bx b/c of body habitus Screening for colorectal cancer Chronic low back pain Encounter for chronic pain management Pain management contract signed Screening for lung cancer Major depressive disorder Insomnia Bladder wall thickening evaluated by [facility] 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 Dyspnea on exertion Edema of both lower extremities Nicotine dependence, cigarettes, with unspecified nicotine-induced disorders Lumbar stenosis with neurogenic claudication Hypothyroidism Essential hypertension Degenerative disc disease Lumbar spine Osteoarthritis CASE (obstructive sleep apnea) Uses a CPAP Hypercholesteremia GERD (gastroesophageal reflux disease) Surgical History Status post lumbar laminectomy S/P cholecystectomy H/O: hysterectomy Total w/ BSO due to hemorrhage; no cancer History of appendectomy History of tonsillectomy History of hernia repair Right inguinal History of carpal tunnel surgery of left wrist History of carpal tunnel surgery of right wrist Status post left rotator cuff repair Status post medial meniscus repair of right knee Hx of right heart catheterization clear; no stents or angioplasty; around 2020 Family History Mother Cancer, Onset Age: 80 lung cancer Hyperthyroidism COPD (chronic obstructive pulmonary disease) Father Cancer, Onset Age: 56 prostate Brother Bladder cancer Social History Smoking and tobacco/nicotine status: current every day tobacco/nicotine user cigarettes Packs smoked per day: 0.75 [ Other cigarette details: started age 20; avg / ppd X 53 is 22 pk yr hx] Second hand smoke exposure: No Alcohol intake: former Former alcohol use details: occasional social drinker Substance/Drug Use: never Adopted: No Caregiver/support person: Yes Lives independently: Yes Household members: none Housing: Manufactured/Mobile home Marital status: Marital status details: lives alone in camper in daughter's yard Number of children: 3 Highest education level completed: GED or Equivalent service: No Current occupational status: retired 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 Pets and animals: Yes Pets & animals: dog(s) Current gender identity: Female Physical Exam Const: COMMON NORMALS: no acute distress, patient oriented x3 and alert Resp: EFFORT & INSPECTION: Yes able to speak in complete sentences AUSCULTATION: diminished lung sounds Cardio: COMMON NORMALS: regular rate and regular rhythm RATE: regular rate RHYTHM: regular rhythm GI: COMMON NORMALS: Soft to palpation and non-tender PALPATION: Yes Soft to palpation Neuro: COMMON NORMALS: patient oriented x3 SENSORIUM/ORIENTATION: Yes alert Psych: COMMON NORMALS: mental status grossly normal, cooperative and normal affect Skin: COMMON NORMALS: no rashes or lesions noted and turgor normal GENERAL SKIN EXAM: no rashes or lesions noted and turgor normal Course Vital Signs: Vital signs: Vital Signs Temperature 97.8 F 07/08/24 10:11 Pulse Rate 56 L 07/08/24 13:40 Respiratory Rate 18 07/08/24 10:36 Blood Pressure 152/74 07/08/24 13:40 Pulse Oximetry 92 07/08/24 13:40 Oxygen Delivery Me thod Room Air 07/08/24 10:36 MDM - SOB/Dyspnea Medical Decision Making Patient is felt significantly better following a breathing treatment and steroids. Patient's symptoms are consistent with COPD. Patient will be discharged with steroid and azithromycin. She will follow-up with her primary care provider and see if she can get a nebulizer she felt that was better than her inhaler. She should return to the ER as needed. Patient's labs were ordered reviewed and show no significant acute findings. Her x-ray showed questionable retrocardiac atelectasis versus pneumonia which is a reason for her azithromycin. Lab Data 07/08/24 10:39 07/08/24 10:39 Labs/Radiology: Radiology Impressions Chest X-Ray 07/08/24 10:11 Impression: 1. Patchy opacity in retrocardiac region which could represent atelectasis and/or pneumonia. 2. No change in atherosclerosis. Laboratory Results WBC 9.54 10^3/uL (3.29-11.43) 07/08/24 10:39 RBC 5.29 10^6/uL (3.85-5.65) 07/08/24 10:39 Hgb 13.30 g/dL (11.27-16.99) 07/08/24 10:39 Hct 42.9 % (36-47) 07/08/24 10:39 MCV 81.1 fl (85-98) L 07/08/24 10:39 MCH 25.1 pg (27-33) L 07/08/24 10:39 MCHC 31.0 g/dL (30-55) 07/08/24 10:39 RDW 15.7 % (12.1-15.1) H 07/08/24 10:39 Plt Count 238 10^3/cmm (157-399) 07/08/24 10:39 MPV 9.1 fL (7.4-10.4) 07/08/24 10:39 Neut % (Auto) 72.6 % 07/08/24 10:39 Lymph % (Auto) 17.9 % 07/08/24 10:39 [place] % (Auto) 6.9 % 07/08/24 10:39 Eos % (Auto) 1.7 % 07/08/24 10:39 Baso % (Auto) 0.5 % 07/08/24 10:39 Neut # (Auto) 6.92 10^3/uL (1.8-7.7) 07/08/24 10:39 Lymph # (Auto) 1.7 10^3/uL (0.8-4.8) 07/08/24 10:39 [place] # (Auto) 0.7 10^3/uL (0.2-0.9) 07/08/24 10:39 Eos # (Auto) 0.2 10^3/uL (0.0-0.8) 07/08/24 10:39 Baso # (Auto) 0.1 10^3/uL (0.0-0.1) 07/08/24 10:39 Nucleated RBC % (auto) 0 % 07/08/24 10:39 Nucleated RBCs # 0.0 /100WBC 07/08/24 10:39 Sodium 138 mmol/L (136-145) 07/08/24 10:39 Potassium 3.4 mmol/L (3.5-5.1) L 07/08/24 10:39 Chloride 102 mmol/L (98-107) 07/08/24 10:39 Carbon Dioxide 25 mmol/L (22-29) 07/08/24 10:39 Anion Gap 14.4 (5-19) 07/08/24 10:39 BUN 10 mg/dL (8-23) 07/08/24 10:39 Creatinine 0.7 mg/dL (0.5-0.9) 07/08/24 10:39 GFR Calculation Not Reportable 07/08/24 10:39 Glucose 96 mg/dL (65-115) 07/08/24 10:39 Calculated Osmolality 285 mOsm/kg (285-295) 07/08/24 10:39 Calcium 9.1 mg/dL (8.5-10.5) 07/08/24 10:39 Magnesium 1.9 mg/dL (1.7-2.3) 07/08/24 10:39 Total Bilirubin 0.4 mg/dL (0.15-1.2) 07/08/24 10:39 AST 9 U/L (0-32) 07/08/24 10:39 ALT 8 U/L (0-33) 07/08/24 10:39 Alkaline Phosphatase 146 U/L (35-105) H 07/08/24 10:39 Troponin T Baseline 13 ng/L (0-10) H 07/08/24 10:39 Troponin T 120 Minute 9.90 ng/L (0-10) 07/08/24 12:31 Delta Troponin T -3.10 ABS# (0-10) L 07/08/24 12:31 Total Protein 7.0 g/dL (6.6-8.7) 07/08/24 10:39 Albumin 3.6 g/dL (3.5-5.2) 07/08/24 10:39 Globulin 3.4 g/dL (1.3-4.6) 07/08/24 10:39 Adenovirus (PCR) Not detected (NOT DETECT) 07/08/24 10:57 C. pneumoniae DNA (PCR) Not detected (NOT DETECT) 07/08/24 10:57 Coronavirus 229E (PCR) Not detected (NOT DETECT) 07/08/24 10:57 Human Metapneumovir PCR Not detected (NOT DETECT) 07/08/24 10:57 Influenza A (H1) PCR Not detected (NOT DETECT) 07/08/24 10:57 Influ A (H1/09) PCR Not detected (NOT DETECT) 07/08/24 10:57 Influenza A (H3) PCR Not detected (NOT DETECT) 07/08/24 10:57 Influenza Type A (PCR) Not detected (NOT DETECT) 07/08/24 10:57 Influenza Type B (PCR) Not detected (NOT DETECT) 07/08/24 10:57 M. pneumoniae (PCR) Not detected (NOT DETECT) 07/08/24 10:57 Parainfluenza 1 (PCR) Not detected (NOT DETECT) 07/08/24 10:57 Parainfluenza 2 (PCR) Not detected (NOT DETECT) 07/08/24 10:57 Parainfluenza 3 (PCR) Not detected (NOT DETECT) 07/08/24 10:57 Parainfluenza 4 (PCR) Not detected (NOT DETECT) 07/08/24 10:57 RSV Type A (PCR) Not detected (NOT DETECT) 07/08/24 10:57 RSV Type B (PCR) Not detected (NOT DETECT) 07/08/24 10:57 Entero/Rhino (PCR) Not detected (NOT DETECT) 07/08/24 10:57 SARS-CoV-2 (PCR) Not detected (NOT DETECT) 07/08/24 10:57 All radiology interpretation(s) finalized by discharge Discharge Plan Discharge Patient Disposition: Home Clinical Impression: COPD (chronic obstructive pulmonary disease) with acute bronchitis Condition: Stable Prescriptions: New prednisone 20 mg tablet 40 mg PO DAILY 3 Days Qty: 6 0RF azithromycin [Zithromax Z-Krishan] 250 mg tablet See Rx Instructions .ROUTE .COMPLEX Qty: 6 0RF Rx Instructions: For 250 mg dose pack: take 500 mg today (day 1), then 250 mg for 4 days (days 2-5) No Action (DME) shower chair See Rx Instructions .Route .MEDSUPPLY Qty: 1 0RF Rx Instructions: As directed aspirin 81 mg tablet,delayed release (DR/EC) 81 mg PO DAILY Qty: 90 1RF baclofen 10 mg tablet 10 mg PO Q6H PRN (Reason: muscle spasm) 30 Days Qty: 120 3RF (DME) Cpap mask and suppies See Rx Instructions .Route .MEDSUPPLY Qty: 1 0RF Rx Instructions: As directed albuterol sulfate 90 mcg/actuation HFA aerosol inhaler 2 puff inhalation Q6H PRN (Reason: shortness of breath or wheezing) Qty: 8.5 2RF furosemide 20 mg tablet 20 mg PO BID Qty: 180 1RF potassium chloride 20 mEq tablet,ER particles/crystals 20 meq PO BID Qty: 180 1RF Trelegy Ellipta 100-62.5-25 mcg blister with device 1 inh inhalation DAILY Qty: 60 5RF levothyroxine 137 mcg tablet 137 mcg PO DAILY Qty: 90 2RF aripiprazole [Abilify] 2 mg tablet 2 mg PO DAILY Qty: 90 2RF losartan 100 mg tablet 100 mg PO DAILY Qty: 90 3RF vilazodone [Viibryd] 40 mg tablet 40 mg PO DAILY Qty: 90 3RF Rx Instructions: MUST TAKE WITH MEAL/FOOD metoprolol tartrate 25 mg tablet 25 mg PO BID Qty: 180 2RF atorvastatin 20 mg tablet 20 mg PO DAILY Qty: 90 3RF oxycodone 5 mg tablet 5 mg PO Q6H PRN (Reason: pain) 30 Days Qty: 90 0RF albuterol sulfate 2.5 mg /3 mL (0.083 %) solution for nebulization 2.5 mg inhalation Q4H PRN (Reason: shortness of breath or wheezing) Qty: 180 1RF (DME) compressor, for nebulizer Device See Rx Instructions .Route Qty: 1 0RF Rx Instructions: nebulizer with tubing kit; As directed trazodone 50 mg tablet 50 - 100 mg PO QPM Rx Instructions: TAKE 1 TO 2 TABLETS BY MOUTH AT BEDTIME omeprazole 40 mg capsule,delayed release(DR/EC) 40 mg PO BID Rx Instructions: take 1 capsule BY MOUTH TWICE DAILY amlodipine 10 mg tablet 10 mg PO DAILY Rx Instructions: TAKE 1 TABLET BY MOUTH EVERY DAY Discharge Orders: Discharge ED (Routine); Ordered 07/08/24 Ordered By: Mateusz Jimenez Referrals: Maite Roberts MD [Primary Care Provider] - Discharge Diet: Usual diet Discharge Activity: Resume usual activity Patient Instructions: COPD (Chronic Obstructive Pulmonary Disease) (ED), Opioid Safety, Pain Management Activity Restrictions/Additional Instructions: Please use your inhaler every 4-6 hours while awake for the next 24 hours. Then as needed. Please follow with your primary care provider. Coding Level of Care Code ED Retail Office Associate for Maisha Robison
[2024-07-08 10:36] VITALS: PULSE 55; RESP 18; O2SAT 96
[2024-07-08] MEDS: ipratropium-albuterol 3 mL Neb INHALATION (10:44)
[2024-07-08 10:45] VITALS: PULSE 58
[2024-07-08 10:46] LABS: Basophils # 0.1 10^3/uL (0.0-0.1); Basophils % 0.5 %; Eosinophils # 0.2 10^3/uL (0.0-0.8); Eosinophils % 1.7 %; Hematocrit 42.9 % (36-47); Lymphocytes # 1.7 10^3/uL (0.8-4.8); Lymphocytes % 17.9 %; Mean Corpuscular Hemoglobin 25.1 pg (27-33); Mean Corpuscular Volume 81.1 fl (85-98); Mean Platelet Volume 9.1 fL (7.4-10.4); Monocytes # 0.7 10^3/uL (0.2-0.9); Monocytes % 6.9 %; Neutrophils # 6.92 10^3/uL (1.8-7.7); Neutrophils % 72.6 %; Nucleated Red Blood Cells % 0 %; Platelet Count 238 10^3/cmm (157-399); Red Blood Count 5.29 10^6/uL (3.85-5.65); Red Cell Distribution Width 15.7 % (12.1-15.1); White Blood Count 9.54 10^3/uL (3.29-11.43)
[2024-07-08] MEDS: methylPREDNISolone sod succ 125 mg/2 mL INJ 80 MG IV (10:53)
[2024-07-08 11:07] LABS: Troponin(5th) Baseline 13 ng/L (0-10)
[2024-07-08 11:14] LABS: Alanine Aminotransferase 8 U/L (0-33); Albumin Level 3.6 g/dL (3.5-5.2); Alkaline Phosphatase 146 U/L (35-105); Anion Gap 14.4 (5-19); Aspartate Amino Transferase 9 U/L (0-32); Blood Urea Nitrogen 10 mg/dL (8-23); Calcium 9.1 mg/dL (8.5-10.5); Carbon Dioxide 25 mmol/L (22-29); Chloride 102 mmol/L (98-107); Creatinine Clr Calc Pharmacy 77.9762; Globulin 3.4 g/dL (1.3-4.6); Glucose 96 mg/dL (65-115); Magnesium 1.9 mg/dL (1.7-2.3); Osmolality Calculated 285 mOsm/kg (285-295); Potassium 3.4 mmol/L (3.5-5.1); Sodium 138 mmol/L (136-145); Total Bilirubin 0.4 mg/dL (0.15-1.2)
--- NOTE | 2024-07-08 12:17 | ECG_ITS ---
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 Measurements Intervals [place] Rate: 65 P: 55 TX: 178 QRS: 31 QRSD: 93 T: 7 QT: 419 QTc: 436 Interpretive Statements SINUS RHYTHM WITH SINUS ARRHYTHMIA Compared to ECG 07/08/2024 10:06:08 T-wave abnormality no longer present Electronically Signed On 07-10-2024 23:30:27 RIVER CAPTAIN by Rush Velez M.D. [email or web address]
[2024-07-08 12:52] LABS: Adenovirus Not Detected (NOT DETECT); Chlamydia Pneumoniae Not Detected (NOT DETECT); Coronavirus 229E,HKU1,NL63,OC4 Not Detected (NOT DETECT); Human Metapneumovirus Not Detected (NOT DETECT); Human Rhinovirus/Enterovirus Not Detected (NOT DETECT); Influenza A Not Detected (NOT DETECT); Influenza A H1 Not Detected (NOT DETECT); Influenza A H1-2009 Not Detected (NOT DETECT); Influenza A H3 Not Detected (NOT DETECT); Influenza B Not Detected (NOT DETECT); Mycoplasma Pneumoniae Not Detected (NOT DETECT); Parainfluenza Virus Type 1 Not Detected (NOT DETECT); Parainfluenza Virus Type 2 Not Detected (NOT DETECT); Parainfluenza Virus Type 3 Not Detected (NOT DETECT); Parainfluenza Virus Type 4 Not Detected (NOT DETECT); Respiratory Syncytial Virus A Not Detected (NOT DETECT); Respiratory Syncytial Virus B Not Detected (NOT DETECT); SARS-COV-2 Not Detected (NOT DETECT)
[2024-07-08 13:40] VITALS: BP 152/74; PULSE 56; O2SAT 92
== END 2024-07-08 13:42 | disposition home or self-care (01) ==
PROVIDERS: Emergency Provider Student in an Organized Health Care Education/Training Program; PCP Family Medicine
DX: J44.89 Other specified chronic obstructive pulmonary disease (principal); Z79.82 Long term (current) use of aspirin; Z11.52 Encounter for screening for COVID-19; F17.210 Nicotine dependence, cigarettes, uncomplicated; I10 Essential (primary) hypertension
CPT/HCPCS: 36415; 71045; 80053; 83735; 84484; 85025; 87486; 87581; 87633; 93005; 94640; 96374; 99285; J2919

== ENCOUNTER → 2024-08-19 14:04 | Outpatient (BNVA) | payer MEDICARE, MEDICAID, SELFPAY | PROVIDERS: PCP Family Medicine; Visit Provider Family Medicine | DX: R06.02 Shortness of breath (principal); R06.09 Other forms of dyspnea | CPT/HCPCS: 71046; 80053; 83880 ==

== ENCOUNTER → 2024-08-26 10:52 | Outpatient (BNVA) | payer MEDICARE, MEDICAID, SELFPAY | PROVIDERS: PCP Family Medicine; Visit Provider Family Medicine | DX: R06.09 Other forms of dyspnea (principal) | CPT/HCPCS: 80053 ==

== ENCOUNTER 2024-09-21 06:51 | Outpatient (CLI) | payer MEDICARE, MEDICAID, SELFPAY ==
--- NOTE | 2024-09-21 07:00 | USCV_ITS ---
Alesia Membreno Age: 74 Gender: F : 1950 Exam Date: 09/21/2024 06:57 Ordering Phys: Kayla Mcfarlane DO Technologist: Exam Location: [facility] [place] Indication: cp BP: 140 / 69 HR: 64 Rhythm: Sinus Technical Quality: Adequate MEASUREMENTS (Male / Female) Normal Values 2D ECHO LV Diastolic Diameter PLAX 4.1 cm 4.2 - 5.9 / 3.9 - 5.3 cm IVS Diastolic Thickness 1.5 cm 0.6 - 1.0 / 0.6 - 0.9 cm IVS Systolic Thickness 2.0 cm LVPW Diastolic Thickness 1.4 cm 0.6 - 1.0 / 0.6 - 0.9 cm LVPW Systolic Thickness 2.0 cm LVOT Diameter 2.1 cm LV Ejection Fraction 2D Teich 64.9 % LV Ejection Fraction MOD 4C 60.9 % LV Ejection Fraction MOD 2C 68.5 % LV Ejection Fraction 2C AL 67.7 % LA Diameter 3.8 cm RA Systolic Volume 4C AL 50.4 ml RA Systolic Volume 4C MOD 49.3 ml Aorta at Sinotubular Diameter 3.5 cm M-MODE LA Ao Ratio MM 1.6 AV Cusp Separation MM 2.3 cm DOPPLER AV Peak Velocity 129.0 cm/s LVOT Peak Velocity 102.0 cm/s AV Area Cont Eq vti 3.1 cm squared AV Area Cont Eq pk 2.7 cm squared MV Peak Velocity 82.0 cm/s MV Area PHT 2.7 cm squared Mitral E to A Ratio 1.1 TV Peak Velocity 163.5 cm/s TR Peak Velocity 187.0 cm/s TR Peak Gradient 14.0 mmHg TV Peak E Velocity 72.0 cm/s PV Peak Velocity 127.0 cm/s FINDINGS Left Ventricle Normal left ventricular size and systolic function, EF 64%. No regional wall motion abnormalities. Mild left ventricular hypertrophy. Right Ventricle Normal right ventricular size and systolic function. Right Atrium The right atrium is normal in size. Left Atrium The left atrium is normal in size. Mitral Valve No gross abnormalities noted Aortic Valve No gross abnormalities noted Tricuspid Valve No gross abnormalities noted Pulmonic Valve Pulmonic valve not well visualized. Pericardium Normal pericardium without effusion. Aorta Normal aortic annulus size. IVC Inferior vena cava not visualized. CONCLUSIONS Normal left ventricular size and systolic function, EF 64%. No regional wall motion abnormalities. Mild left ventricular hypertrophy. Normal cardiac chamber sizes. No gross valvular abnormalities. There is no pericardial effusion. Dr Danay Valente MD FACC (Electronically Signed) Final Date: 23 September 2024 12:57 S
== END 2024-09-21 06:52 | disposition home or self-care (01) ==
PROVIDERS: PCP Family Medicine; Visit Provider Family Medicine
DX: R06.09 Other forms of dyspnea (principal); I42.2 Other hypertrophic cardiomyopathy
CPT/HCPCS: 93306

== ENCOUNTER 2024-09-29 16:41 | Outpatient (CLI) | payer MEDICARE, MEDICAID, SELFPAY ==
--- NOTE | 2024-09-29 16:43 | CT_ITS ---
WS: [id number] CT chest wo con [id number] HISTORY: LUNG NODULE, DYSPNEA, EMPHYSEMA TECHNIQUE: Axial imaging performed through the thorax. Coronal and sagittal reformats are submitted. All CT scans at [facility] use at least one of these dose optimization techniques: automated exposure control; mA and/or kV adjustment per patient size (includes targeted exams where dose is matched to clinical indication); or iterative reconstruction. CONTRAST: None DLP: 627.85 mGy.cm COMPARISON: 06/02/2024, 05/27/2023, PET/CT 06/11/2024 Lungs and central airway: PET/CT positive nodule in the LEFT upper lobe is linear measuring 1.4 cm in maximum diameter. Minimal change since the most recent study. Mass has increased in size since 05/27/2023. No new mass. Changes of emphysema. No pneumonia. Mild atelectasis medial RIGHT middle lobe. Pleura: Normal. No pleural effusion. Heart and pericardium: Normal size heart with no pericardial effusion. Mediastinum and jesenia: Mediastinal and hilar lymph nodes are difficult accurately assessed without IV contrast. Inferior RIGHT paratracheal lymph node is unchanged at 12 mm. Vessels: Mild atherosclerosis aorta. No aneurysm. Mild pulmonary artery dilatation. Chest wall and lower neck: No soft tissue masses. Upper abdomen: Moderate size hiatal hernia. Moderate calcifications in the suprarenal aorta. Osseous structures: Mild increase in thoracic kyphosis. CT/CT chest wo con [id number] IMPRESSION: 1. PET/CT positive linear nodule measures 1.4 cm. Not significantly changed in size since 06/02/2024. 2. No mediastinal or hilar adenopathy identified on this unenhanced exam. 3. Bilateral adrenal adenoma.
== END 2024-09-29 16:42 | disposition home or self-care (01) ==
PROVIDERS: PCP Family Medicine; Visit Provider Internal Medicine
DX: R91.1 Solitary pulmonary nodule (principal); J43.9 Emphysema, unspecified; R06.00 Dyspnea, unspecified; J98.11 Atelectasis; R59.0 Localized enlarged lymph nodes; I70.0 Atherosclerosis of aorta; I28.1 Aneurysm of pulmonary artery; K44.9 Diaphragmatic hernia without obstruction or gangrene; M40.294 Other kyphosis, thoracic region; D35.02 Benign neoplasm of left adrenal gland; D35.01 Benign neoplasm of right adrenal gland
CPT/HCPCS: 71250

== ENCOUNTER 2024-10-01 15:03 | Outpatient (CLI) | payer MEDICARE, MEDICAID, SELFPAY ==
--- NOTE | 2024-10-01 15:30 | US_ITS ---
WS: [id number] ULTRASOUND SOFT TISSUES LEFT arm HISTORY: 4 cm soft tissue mass COMPARISON: None available. TECHNIQUE: 2-D and color Doppler imaging is submitted. Ultrasound performed over the LEFT arm as directed by the patient. There is an isoechoic soft tissue mass suspicious for lipoma. There is very slight displacement of the fibrous septa. This mass measures 2.5 x 4.1 x 1.7 cm. No increased vascularity. US/US soft tissue/extremity [id number] IMPRESSION: Palpable area LEFT arm is most consistent with a benign lipoma.
== END 2024-10-01 15:04 | disposition home or self-care (01) ==
PROVIDERS: PCP Family Medicine; Visit Provider Family Medicine
DX: M79.89 Other specified soft tissue disorders (principal)
CPT/HCPCS: 76882

== ENCOUNTER → 2024-10-06 12:58 | Outpatient (BNVA) | payer MEDICARE, MEDICAID, SELFPAY | PROVIDERS: PCP Family Medicine; Visit Provider Surgery | DX: M79.89 Other specified soft tissue disorders (principal) | CPT/HCPCS: 99203 ==

== ENCOUNTER 2024-10-11 06:39 | Day surgery (SDC) | payer MEDICARE, MEDICAID, SELFPAY ==
[2024-10-11] VITALS (10 sets, daily range): BP systolic 123–165; BP diastolic 56–91; PULSE 59–82; RESP 13–20; TEMP 36.1–36.7; O2SAT 91–97; BMI 46.2
--- NOTE | 2024-10-11 06:57 | P.HPUD_ITS ---
Surgery/Procedure H&P Update DATE OF PROCEDURE: October 11, 2024 DATE H&P PERFORMED: 10/06/24 H&P UPDATE INFORMATION: I have reviewed H&P completed within last 30 days, I have examined patient prior to procedure, No changes to prior documentation, H&P is in [facility] EMR on date indicated and Risks and benefits of the procedure reviewed PLANNED PROCEDURE: Operation Date: 10/11/24 08:25 Proposed Procedures p Excision Mass/Lesion/Cyst Upper Extremit(Left) - Marc Arshad MD
[2024-10-11] MEDS: sodium chloride 0.9% 1,000 ML 30 ML IV (07:16)
[2024-10-11 07:39] LABS: Blood Urea Nitrogen 17 mg/dL (8-23); Calcium 9.3 mg/dL (8.5-10.5); Carbon Dioxide 23 mmol/L (22-29); Chloride 102 mmol/L (98-107); Glucose 124 mg/dL (65-115); Osmolality Calculated 289 mOsm/kg (285-295); Sodium 138 mmol/L (136-145)
--- NOTE | 2024-10-11 08:03 | P.ANESASSM_ITS ---
Pre-Anesthetic Assessment Height/Weight: Height 1.6 m Weight 118.388 kg Temp Pulse Resp BP Pulse Ox O2 Del Method 97.2 F L 82 16 152/91 97 Room Air 10/11/24 06:55 10/11/24 06:55 10/11/24 06:55 10/11/24 06:55 10/11/24 06:55 10/11/24 06:55 Operation Date: 10/11/24 08:25 Proposed Procedures p Excision Mass/Lesion/Cyst Upper Extremit(Left) - Marc Arshad MD Familial anesthetic complications: None Was Beta Catrachita taken within 24 hours: N/A Was Clonidine taken within 24 hours: N/A Last intake: Intake Last Liquid Date 10/10/24 Last Liquid Time 22:00 Last Solid Date 10/10/24 Last Solid Time 22:00 Social Tobacco and No alcohol Exam alert, oriented x 3, clear to auscultation bilaterally and regular rate & rhythm Airway Mallampati: Class IV Dentition: other (none) Pulmonary Chronic Obstructive Pulmonary Disease CV/HEM Arrythmia, Congestive Heart Failure and Hypertension GI Gastroesophageal Reflux Disease Metabolic Hyperlipidemia and Morbid Obesity Anesthetic Plan ASA status: 4 Anesthesia: General Risk of > 500 ml blood loss (7ml/kg in children): No Medications/Allergies Home Medications ?Medication ?Instructions ?Recorded ?Confirmed ?Last Taken ?Type shower chair #1 ea 04/26/21 10/11/24 Unkn own Rx Cpap mask and suppies #1 ea 07/26/21 10/11/24 Unkn own Rx aspirin 81 mg tablet,delayed 81 mg PO DAILY #90 tabs 0 11/01/21 10/11/24 10/05/24 Rx release baclofen 10 mg tablet 10 mg PO Q6H PRN muscle spas m 30 01/15/24 10/11/24 07/08/24 Rx days #120 tabs aripiprazole 2 mg tablet (Abilify) 2 mg PO DAILY #90 t abs 05/07/24 10/11/24 10/10/24 Rx levothyroxine 137 mcg tablet 137 mcg PO DAILY #90 tabs 05/07/24 10/11/24 10/10/24 Rx losartan 100 mg tablet 100 mg PO DAILY #90 tabs 10/11/24 10/07/24 Rx metoprolol tartrate 25 mg tablet 25 mg PO BID #180 tab s 05/07/24 10/11/24 10/10/24 Rx vilazodone 40 mg tablet (Viibryd) 40 mg PO DAILY #90 t abs 05/07/24 10/11/24 10/10/24 Rx atorvastatin 20 mg tablet 20 mg PO DAILY #90 tabs /10/0810/11/24 10/10/24 Rx compressor, for nebulizer #1 ea 07/08/24 10/11/24 Unkn own Rx albuterol sulfate 2.5 mg/3 mL 2.5 mg (3 mL) inhalation Q4H PRN 08/26/24 10/11/24 Unknown Rx (0.083 %) solution for nebulization shortness of breat h or wheezing #180 mL albuterol sulfate 90 mcg/actuation 2 puff inhalation Q 6H PRN 08/26/24 10/11/24 Unknown Rx aerosol inhaler shortness of breath or wheez ing #8.5 grams oxycodone 5 mg tablet 5 mg PO Q6H PRN pain 30 days #90 08/26/24 10/11/24 10/07/24 Rx tabs furosemide 40 mg tablet 40 mg PO BID #60 tabs 10/11/24 10/10/24 Rx potassium chloride 20 mEq 20 meq PO BID 30 days #60 ta bs 08/27/24 10/11/24 10/10/24 Rx tablet,extended release(part/cryst) spironolactone 25 mg tablet 25 mg PO QAM #30 tabs 08/1410/11/24 10/10/24 Rx trazodone 50 mg tablet 50 - 100 mg (1 - 2 x 50 mg) PO QPM 09/03/24 10/11/24 10/10/24 Rx #60 tabs amlodipine 10 mg tablet 10 mg PO DAILY #90 tabs /07/1010/11/24 10/11/24 Rx omeprazole 40 mg capsule,delayed 40 mg PO BID #90 caps 10/04/24 10/11/24 10/10/24 Rx release fluticasone fur. 100 mcg-umeclid 1 inh inhalation KRISHNA Y #60 ea 10/06/24 10/11/24 10/07/24 Rx 62.5 mcg-vilant 25 mcg inhalat.powder (Trelegy Ellipta) Allergies Allergy/AdvReac Type Severity Reaction Status Date / Time celecoxib (From Celebrex) Allergy itching Verified 10/07/24 16:21 gabapentin Allergy Unknown Verified 10/07/24 16:21 morphine Allergy extreme Verified 10/07/24 16:21 itching Sulfa (Sulfonamide Allergy itching Verified 10/07/24 16:21 Antibiotics) Current Medications Generic Name Dose Route Start Last Admin Trade Name Freq PRN Reason Stop Dose Admin Sodium Chloride 1,000 mls @ 30 mls/hr 10/11/24 07:00 10/11/24 07:16 Sodium Chloride 0.9% IV 10/12/24 06:59 30 mls/hr .Q24H DALE Administration PFSH Anesthesia Medical History Left upper lobe pulmonary nodule on CT screen and PET-suspicious; IR says they can't do bx b/c of body habitus Screening for colorectal cancer Chronic low back pain Encounter for chronic pain management Pain management contract signed Screening for lung cancer Major depressive disorder Insomnia Bladder wall thickening evaluated by [facility] 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 Dyspnea on exertion Edema of both lower extremities Nicotine dependence, cigarettes, with unspecified nicotine-induced disorders Lumbar stenosis with neurogenic claudication Hypothyroidism Essential hypertension Degenerative disc disease Lumbar spine Osteoarthritis CSAE (obstructive sleep apnea) Uses a CPAP Hypercholesteremia GERD (gastroesophageal reflux disease) Surgical History Status post lumbar laminectomy S/P cholecystectomy H/O: hysterectomy Total w/ BSO due to hemorrhage; no cancer History of appendectomy History of tonsillectomy History of hernia repair Right inguinal History of carpal tunnel surgery of left wrist History of carpal tunnel surgery of right wrist Status post left rotator cuff repair Status post medial meniscus repair of right knee Hx of right heart catheterization clear; no stents or angioplasty; around 2020 Family History Mother Cancer, Onset Age: 80 lung cancer Hyperthyroidism COPD (chronic obstructive pulmonary disease) Father Cancer, Onset Age: 56 prostate Brother Bladder cancer Social History (Reviewed 10/06/24 @ 13:27 [place] Smoking and tobacco/nicotine status: current some day tobacco/nicotine user cigarettes Packs smoked per day: 0.75 [ Other cigarette details: started age 20; avg 1/2 ppd X 53 is 22 pk yr hx] Second hand smoke exposure: No Alcohol intake: former Former alcohol use details: occasional social drinker Substance/Drug Use: never Adopted: No Caregiver/support person: Yes Lives independently: Yes Household members: none Housing: Manufactured/Mobile home Marital status: Marital status details: lives alone in camper in daughter's yard Number of children: 3 Highest education level completed: GED or Equivalent service: No Current occupational status: retired 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
[2024-10-11] MEDS: ceFAZolin 2,000 mg SDV 2000 MG IVP (08:53)
[2024-10-11] MEDS: ceFAZolin 2,000 mg SDV 1000 MG IVP (08:55)
[2024-10-11] MEDS: BUPivacaine 0.5% INJ 10 mL INJECTION (09:31)
[2024-10-11] MEDS: lidocaine-epi 1% 20 mL INJ 10 ML INJECTION (09:32)
--- NOTE | 2024-10-11 09:42 | P.OP_ITS ---
Operative Report Date of procedure: October 11, 2024 Pre-op diagnosis: Left shoulder soft tissue lesion Post-op diagnosis: Same Post-op findings: There was 4 x 3 cm soft tissue mass of the left shoulder in the subcutaneous tissue Procedure done: Excision of soft tissue mass of the left shoulder Specimens removed/disposition: Soft tissue mass of the left shoulder Surgeon: Marc Arshad MD Rouge Mixer: [facility] OR Staff Brief History: 74-year-old female with left shoulder soft tissue mass who presented to the hospital for possible excision. All recent benefits were documented and discussed with the patient. Procedure: Patient was brought into the OR, she was placed in a supine position. General anesthesia was given. The left shoulder was prepped and draped in the usual sterile fashion. Timeout was conducted. A 4 cm incision was made and deepened into the subcutaneous tissue anterior the lipomatous mass was identified. I then proceeded to bluntly dissect seen confidentially the lesion from the surrounding tissues. The pedicle at the base was then taken down using electrocautery. The mass was passed to be sent to pathology. The measurement of the mass was about 4 x 3 x 1.5 cm. Hemostasis was achieved. The wound was irrigated. Local anesthesia was infiltrated. The wound was closed in layers using #3-0 Vicryl for the subcutaneous tissue #4 Monocryl for the skin. Dermabond was applied. At the end of the procedure all counts were correct, the patient tolerated well the procedure was transferred to the PACU in stable condition.
--- NOTE | 2024-10-11 10:45 | ANE.PACU2 ---
Inpatient post-anesthesia follow up: Airway intact: Yes Vital signs: Temperature 98 F Pulse Rate 65 Respiratory Rate 16 Blood Pressure 165/62 Pulse Oximetry 94 Oxygen Delivery Me thod Room Air Oxygen Flow Rate 2 Fraction of Inspir ed Oxygen Hydration adequate: Yes Nausea and vomiting: No Pain level: 1 Mental status: Baseline
== END 2024-10-11 10:49 | disposition home or self-care (01) ==
PROVIDERS: Anesthesiology; PCP Family Medicine; Visit Provider Surgery
PROC: (CPT 23071; principal; 2024-10-11 08:15)
DX: D17.22 Benign lipomatous neoplasm of skin and subcutaneous tissue of left arm (principal); E03.9 Hypothyroidism, unspecified; I11.0 Hypertensive heart disease with heart failure; J44.9 Chronic obstructive pulmonary disease, unspecified; E66.01 Morbid (severe) obesity due to excess calories; I50.9 Heart failure, unspecified; E78.5 Hyperlipidemia, unspecified; G47.33 Obstructive sleep apnea (adult) (pediatric); F17.210 Nicotine dependence, cigarettes, uncomplicated; Z79.899 Other long term (current) drug therapy; Z79.82 Long term (current) use of aspirin; Z79.890 Hormone replacement therapy; Z68.42 Body mass index [BMI] 45.0-49.9, adult; Z88.2 Allergy status to sulfonamides; Z88.8 Allergy status to other drugs, medicaments and biological substances; Z88.5 Allergy status to narcotic agent
CPT/HCPCS: 23071; 80048; 88307; J0690; J1100; J2405; J2704; J3010; J3490; J7030; J9999

== ENCOUNTER → 2024-10-19 15:57 | Outpatient (BNVA) | payer MEDICARE, MEDICAID, SELFPAY | PROVIDERS: PCP Family Medicine; Visit Provider Family Medicine | DX: E03.9 Hypothyroidism, unspecified (principal); E78.00 Pure hypercholesterolemia, unspecified; Z98.890 Other specified postprocedural states; M54.50 Low back pain, unspecified; G89.29 Other chronic pain | CPT/HCPCS: 80053; 80061; 84439; 84443 ==

== ENCOUNTER → 2024-10-26 07:40 | Outpatient (BNVA) | payer MEDICARE, MEDICAID, SELFPAY | PROVIDERS: PCP Family Medicine; Visit Provider Surgery | DX: K21.9 Gastro-esophageal reflux disease without esophagitis (principal); Z98.890 Other specified postprocedural states | CPT/HCPCS: 99024 ==

== ENCOUNTER → 2024-11-22 13:40 | Outpatient (BNVA) | payer MEDICARE, MEDICAID, SELFPAY | PROVIDERS: PCP Family Medicine; Visit Provider Internal Medicine | DX: I11.0 Hypertensive heart disease with heart failure (principal); I50.33 Acute on chronic diastolic (congestive) heart failure; E78.00 Pure hypercholesterolemia, unspecified; Z79.82 Long term (current) use of aspirin; F17.210 Nicotine dependence, cigarettes, uncomplicated; R06.09 Other forms of dyspnea; R07.9 Chest pain, unspecified | CPT/HCPCS: 93005; 99204 ==

== ENCOUNTER 2024-12-01 08:40 | Outpatient (CLI) | payer MEDICARE, MEDICAID, SELFPAY ==
[2024-12-01 08:43] VITALS: BMI 45.3
--- NOTE | 2024-12-01 08:43 | NMCV_ITS ---
NM yady perf SPECT r/s* [id number] Alesia Membreno Age: 74 Gender: F : 1950 Exam Date: 12/01/2024 09:41 Ordering Phys: Rush Velze M.D ([email or web address]) Technologist: DANIA Cruz Exam Location: [facility] Indications: cp STRESS TEST [facility] IMAGE PROTOCOL Rest/Stress 1 Lexiscan Day Radiopharmaceutical Dose (mCi) Administration Site Administered by Rest: Tc-99m 10.4 IV DANIA Cruz Sestamibi Stress:Tc-99m 32.8 IV Yvette Mejia, FINANCIAL AID OFFICER Sestamibi Rest: 01-Dec-2024 60 Discovery 630 Stress: 01-Dec-2024 30 Discovery 630 0.4mg Lexiscan. Images obtained in supine and prone position. SPECT RESULTS Technical Quality: Good Raw Data Analysis: Normal Image Corrections: No attenuation or motion correction applied Summed Stress Score: 0 Summed Rest Score: 0 Summed Difference Score: 0 PERFUSION FINDINGS Fairly uniform myocardial tracer uptake with no significant Perfusion abnormalities FUNCTIONAL RESULTS (calculated via Gated SPECT) Stress Image LV EF (%): 70 Stress EDV (mL):76 TID: 0.85 Stress ESV (mL):23 FUNCTIONAL FINDINGS: Segmental wall motion analysis revealing no gross wall motion abnormalities IMPRESSIONS 1. Myocardial perfusion imaging revealing uniform myocardial tracer uptake with no significant Perfusion abnormalities. 2. Normal LV ejection fraction of 70%. 3. LV wall motion analysis revealing no gross wall motion abnormalities. 4. Normal LV volume Low probability for coronary ischemia, based on the above findings No similar previous studies are available for comparison Dr Danay Valente MD [facility] (Electronically Signed) Final Date: 01 December 2024 16:27 S
--- NOTE | 2024-12-01 08:43 | ECG_ITS ---
[facility] Test Date: 2024-12-01 Pat Name: Alesia Membreno Department: Room: Gender: Female Sign Manufacturer: : 1950 Requested By: Rush Velez Order Number: [id number] Jailene MD: Danay Valente M.D. Interpretive Statements Lung unchanged pre/post procedure; Intraprocedure shortess of breath; Symptoms resoled by discharge PROCEDURE: At the baseline, the EKG revealed normal sinus rhythm with poor R wave progression. Diffuse nonspecific T wave changes. Low voltage complexes in the precordial leads. The baseline heart was 70 bpm with a blood pressue of 125/58 mm of Hg Lexiscan was infused over a period of 20 seconds. A total of 0.4 milligrams of Lexiscan was infused. The stress phase was continued for a total of 5 minutes. Heart rate at the end of the stress phase was 86 bpm with a blood pressure 134/43 mm of Hg. The EKG at the peak infusion revealed no significant changes. Sestamibi was injected 20 seconds after the Lexiscan infusion. Heart rate at the end of the recovery phase was 82 bpm with a blood pressure of 137/40 mm of Hg. CONCLUSION: 1. No significant EKG changes with the LexiScan infusion 2. No LexiScan induced chest pain or cardiac arrhythmia 3. Normal blood pressure and heart rate response 4. Sestamibi/sestamibi perfusion scan pending; see separate report. Electronically Signed On 12-05-2024 21:57:33 CDT by Danay Valente M.D. [email or web address]
[2024-12-01] MEDS: regadenoson 0.4 Mg/5 ml Syringe IVP (10:08)
[2024-12-01 10:26] VITALS: BP 137/43; PULSE 81
== END 2024-12-01 08:41 | disposition home or self-care (01) ==
LOC: CDL 08:42
PROVIDERS: PCP Family Medicine; Visit Provider Internal Medicine
DX: R07.9 Chest pain, unspecified (principal)
CPT/HCPCS: 36415; 78452; 93017; 96374; A9500; J2785

== ENCOUNTER → 2025-01-19 07:45 | Outpatient (BNVA) | payer MEDICARE, MEDICAID, SELFPAY | PROVIDERS: PCP Family Medicine; Visit Provider Internal Medicine | DX: R91.1 Solitary pulmonary nodule (principal); G47.33 Obstructive sleep apnea (adult) (pediatric); F17.210 Nicotine dependence, cigarettes, uncomplicated; R06.09 Other forms of dyspnea | CPT/HCPCS: 99215 ==

== ENCOUNTER 2025-01-26 13:48 | Outpatient (CLI) | payer MEDICARE, MEDICAID, SELFPAY ==
--- NOTE | 2025-01-26 14:00 | CT_ITS ---
WS: [id number] CT chest wo con [id number] HISTORY: left upper lobe nodule TECHNIQUE: Axial imaging performed through the thorax. Coronal and sagittal reformats are submitted. [facility] CT [facility] at [facility] use at least one of these dose optimization techniques: automated exposure control; mA and/or kV adjustment per patient size (includes targeted exams where dose is matched to clinical indication); or iterative reconstruction. CONTRAST: None DLP: 668.42 mGy.cm COMPARISON: 05/27/2023, 09/29/2024, 06/02/2024 Lungs and central airway: Hyperinflated lungs. Mild hazy attenuation and groundglass opacification throughout both lungs. Previously described nodule in the LEFT upper lobe measures 1.4 x 0.9 x 0.7 cm. This nodule has slowly increased in size since 05/27/2023. Not significantly changed since the most r ecent exam of 09/29/2024. 2 mm nodule RIGHT upper lobe, image 20 series 5. No mass or pneumonia. Benign granuloma LEFT lower lobe. 3 mm superior LEFT fissural nodule. Subsegmental atelectasis RIGHT middle lobe. Pleura: Normal. No pleural effusion. Heart and pericardium: Normal size heart with no pericardial effusion. Mediastinum and jesenia: No pathologically enlarged lymph nodes. Vessels: Mild atherosclerosis aorta. Pulmonary artery is slightly dilated to 3.6 cm. Scattered coronary artery calcifications. Chest wall and lower neck: No soft tissue masses. Upper abdomen: Bilateral adrenal nodules with negative Hounsfield units. RIGHT adrenal nodule 1.2 cm. LEFT adrenal nodule 1.7 cm. Similar to prior studies including 05/01/2023 midline supraumbilical hernia containing fat only. Osseous structures: Mild increase in thoracic kyphosis. No destructive bone lesions. CT/CT chest wo con [id number] IMPRESSION: 1. LEFT upper lobe pulmonary nodule measures 1.4 x 0.9 x 0.7 cm. No significan t change in size since 09/29/2024. This nodule has slowly increased in size sinc e 05/27/2023. Neoplastic nodule is not excluded. PET/CT imaging has been reques latrell. 2. No pathologically enlarged lymph nodes. 3. Hyperinflated lungs with scattered areas of groundglass attenuation. Probab ly related to small vessel disease. 4. Mildly dilated pulmonary artery. 5. Stable bilateral adrenal nodules consistent with adenomas.
[2025-01-26 15:30] LABS: Hematocrit 44.4 % (36-47); Hemoglobin 14.00 g/dL (11.27-16.99); Mean Corpuscular HGB Conc 31.5 g/dL (30-55); Mean Corpuscular Hemoglobin 26.8 pg (27-33); Mean Corpuscular Volume 84.9 fl (85-98); Nucleated Red Blood Cells % 0 %; Platelet Count 263 10^3/cmm (157-399); Red Blood Count 5.23 10^6/uL (3.85-5.65); White Blood Count 10.61 10^3/uL (3.29-11.43)
[2025-01-26 15:43] LABS: INR 0.98 (0.8-1.2); Prothrombin Time 13.60 SECONDS (12.1-14.9)
[2025-01-26 15:45] LABS: Partial Thromboplastin Time 30.8 SECONDS (23.9-36.7)
[2025-01-26 15:49] LABS: Anion Gap 14.8 (5-19); Blood Urea Nitrogen 14 mg/dL (8-23); Calcium 9.2 mg/dL (8.5-10.5); Carbon Dioxide 24 mmol/L (22-29); Chloride 106 mmol/L (98-107); Glucose 128 mg/dL (65-115); Osmolality Calculated 294 mOsm/kg (285-295); Potassium 3.8 mmol/L (3.5-5.1); Sodium 141 mmol/L (136-145)
== END 2025-01-26 13:49 | disposition home or self-care (01) ==
PROVIDERS: PCP Family Medicine; Visit Provider Internal Medicine
DX: R91.1 Solitary pulmonary nodule (principal); F17.219 Nicotine dependence, cigarettes, with unspecified nicotine-induced disorders; I50.33 Acute on chronic diastolic (congestive) heart failure; J98.4 Other disorders of lung; I28.8 Other diseases of pulmonary vessels; D35.02 Benign neoplasm of left adrenal gland; D35.01 Benign neoplasm of right adrenal gland
CPT/HCPCS: 36415; 71250; 80048; 85025; 85610; 85730

== ENCOUNTER 2025-01-28 13:43 | Outpatient (CLI) | payer MEDICARE, MEDICAID, SELFPAY ==
--- NOTE | 2025-01-28 14:00 | PETR_ITS ---
PROCEDURE INFORMATION: Exam: PET/CT Skull Base to Mid-thigh Exam date and time: 01/28/2025 3:23 PM Age: 74 years old Clinical indication: Abnormal findings; Left upper lobe pulmonary nodule measures 1.4 x 0.9 x 0.7 cm. No significant change in size since 09/29/2024. This nodule has slowly increased in size since 05/27/2023; Additional info: Lung nodule increasing in size, before 02/02/2025 LABS AND CLINICAL REPORTS: Glucose: 72 mg/dl Treatment strategy for malignancy (PET staging): Initial Staging (PI) TECHNIQUE: Imaging protocol: Following at least four-hour fasting and following the injection of radiopharmaceutical, low dose CT images were obtained. Then, PET images were obtained. Attenuation corrected images were constructed using the CT scan. Fused images of PET and CT were reviewed. The standardized uptake values (SUV) reported below are maximum values within a region of interest, expressed in gm/ml. Exam includes orbital meatal line to mid-thigh. SUV normalization method: BodyWeight Radiopharmaceutical: 11.63 mCi F-18 FDG (Fluorodeoxyglucose), IV. Time of imaging post radiopharmaceutical administration: 56 minutes Injection site: right ac COMPARISON: 1. PT PET skull to thigh INIT [id number] 06/11/2024 12:[address] chest wo con [id number] 01/26/2025 2:04 PM FINDINGS: Brain: Visualized brain has normal physiologic uptake. Pharynx: No abnormal uptake. Larynx: No abnormal uptake. Lungs, pleura and trachea: FDG avid left upper lobe nodule measures 1.5 x 1.0 cm on axial image 79 and shows SUV max 7.7, previously 1.2 x 0.5 cm with SUV max 6.2. Left lower lobe calcified granuloma. Heart: Normal physiologic uptake. Coronary arteries: Mild coronary artery calcification. Mediastinal space: No abnormal uptake. Liver: No abnormal uptake. Gallbladder and biliary ducts: No abnormal uptake. Prior cholecystectomy. Pancreas: No abnormal uptake. Spleen: No abnormal uptake. Adrenal glands: No abnormal uptake. Stable mild nodular bilateral adrenal glands compatible with adenomas. Kidneys and ureters: Normal physiologic uptake. Stomach and bowel: No abnormal uptake. Colonic diverticulosis without findings of diverticulitis. Reproductive: The uterus is surgically absent. Vasculature: No abnormal uptake. Heavy systemic atherosclerotic calcification without aortic aneurysm. Stable mild pulmonary arterial dilatation. Lymph nodes: No abnormal uptake. No lymphadenopathy in the head, neck, chest, abdomen, pelvis, and extremities. Calcified left hilar nodes in keeping with sequela of old granulomatous disease. Skeleton: Low-level uptake at the right hip is likely inflammatory. Low-level uptake adjacent to the right greater trochanter is likely inflammatory. Degenerative changes along the spine. Lower lumbar spine laminectomies. Soft tissues: Asymmetric linear FDG uptake at the right teres minor tendon without underlying CT abnormality is likely inflammatory. Small fat containing ventral abdominal wall hernias. Right ventral abdominal wall postsurgical change. METRICS: Mediastinal blood pool: SUV mean 2.2 Liver uptake: SUV mean 3.0 PET/PET skull to thigh INIT [id number] IMPRESSION: 1. Compared to May 2024, increased size and metabolic activity of left upper lobe nodule suspicious for malignancy. 2. Additional chronic and incidental findings as above.
== END 2025-01-28 13:44 | disposition home or self-care (01) ==
LOC: RAD 13:44
PROVIDERS: PCP Family Medicine; Visit Provider Internal Medicine
DX: R91.1 Solitary pulmonary nodule (principal); J84.10 Pulmonary fibrosis, unspecified; I25.10 Atherosclerotic heart disease of native coronary artery without angina pectoris; Z90.49 Acquired absence of other specified parts of digestive tract; I28.8 Other diseases of pulmonary vessels; M51.369 Other intervertebral disc degeneration, lumbar region without mention of lumbar back pain or lower extremity pain; Z98.890 Other specified postprocedural states
CPT/HCPCS: 78815; A9552

== ENCOUNTER 2025-02-02 06:40 | Day surgery (SDC) | payer MEDICARE, MEDICAID, SELFPAY ==
[2025-02-02] VITALS (11 sets, daily range): BP systolic 125–161; BP diastolic 55–103; PULSE 65–89; RESP 16–20; TEMP 36.1–36.3; O2SAT 90–97; BMI 45.7
--- NOTE | 2025-02-02 06:43 | CT_ITS ---
WS: [id number] CT chest ION (PULM ONLY) [id number] HISTORY: Left upper lobe lung nodule needs robotic bronchoscopy plan TECHNIQUE: Axial imaging performed through the thorax. . All CT scans at [facility] use at least one of these dose optimization techniques: automated exposure control; mA and/or kV adjustment per patient size (includes targeted exams where dose is matched to clinical indication); or iterative r econstruction. CONTRAST: None DLP: 67.82 mGy COMPARISON: 01/26/2025 CT performed for navigational bronchoscopy purposes. Reidentified is a spiculated mass in the LEFT upper lobe measuring 14 x 9 mm. No endobronchial lesions. Background of chronic emphysema. Moderate atherosclerosis aorta. Pulmonary hypertension. Subsegmental atelectasis RIGHT middle lobe with bronchiectasis. CT/CT chest ION (PULM ONLY) [id number] IMPRESSION: CT performed for navigational bronchoscopy purposes, spiculated mass LEFT upper lobe 14 x 9 mm.
--- NOTE | 2025-02-02 07:44 | W.PM.OPSUD ---
Surgery/Procedure H&P Update DATE OF PROCEDURE: February 02, 2025 DATE H&P PERFORMED: 01/19/25 CHANGES TO PREVIOUS DOCUMENTATION: I have seen and examined the patient. No significant change in her clinical status since her last visit in my clinic on 01/19/2025. Discussed with the patient the benefits and the risk of robotic bronchoscopy with mediastinal staging. She agreed to proceed forward with the procedure. PLANNED PROCEDURE: Operation Date: 02/02/25 07:00 Proposed Procedures p Ion Robotic Bronchoscopy 11817, 69074, 04036, 47500, 31355, 27172, 89526, 18124(Not Applicable) - Nigel Kamara MD s Ebus(Not Applicable) - Nigel Kamara MD
--- NOTE | 2025-02-02 07:52 | ANES.PREANE2 ---
Pre-Anesthetic Assessment Height/Weight: Height 1.6 m Weight 117.027 kg Temp Pulse Resp BP Pulse Ox O2 Del Method 97.0 F L 65 18 147/64 95 Room Air 02/02/25 07:01 02/02/25 07:01 02/02/25 07:01 02/02/25 07:01 02/02/25 07:01 02/02/25 07:01 Operation Date: 02/02/25 07:00 Proposed Procedures p Ion Robotic Bronchoscopy [id number], 09364, 31133, 67651, 03479, 81507, 28528, 98071(Not Applicable) - Nigel Kamara MD s Ebus(Not Applicable) - Nigel Kamara MD Familial anesthetic complications: none Was Beta Catrachita taken within 24 hours: N/A Was Clonidine taken within 24 hours: N/A Last intake: Intake Last Liquid Date 02/01/25 Last Liquid Time 19:00 Last Solid Date 02/01/25 Last Solid Time 16:00 Social No alcohol and No tobacco Exam alert, oriented x 3, clear to auscultation bilaterally and regular rate & rhythm Airway Mallampati: Class II Dentition: false Pulmonary Chronic Obstructive Pulmonary Disease and Sleep Apnea Lung nodule CV/HEM Congestive Heart Failure and Hypertension GI Gastroesophageal Reflux Disease Metabolic Hyperlipidemia and Thyroid Disease Anesthetic Plan ASA status: 4 Anesthesia: General Risk of > 500 ml blood loss (7ml/kg in children): No Medications/Allergies Home Medications ?Medication ?Instructions ?Recorded ?Confirmed ?Last Taken ?Type shower chair #1 ea 04/26/21 01/31/25 Unknown Rx Cpap mask and suppies #1 ea 07/26/21 01/31/25 Unknown Rx aspirin 81 mg tablet,delayed 81 mg PO DAILY #90 tabs 11/01/21 02/02/25 02/01/25 Rx release losartan 100 mg tablet 100 mg PO DAILY #90 tabs 05/07/24 02/02/25 02/01/25 Rx vilazodone 40 mg tablet (Viibryd) 40 mg PO DAILY #90 tabs 05/07/24 02/02/25 02/01/25 Rx atorvastatin 20 mg tablet 20 mg PO DAILY #90 tabs 06/19/24 02/02/25 02/01/25 Rx compressor, for nebulizer #1 ea 07/08/24 01/31/25 Unknown Rx albuterol sulfate 2.5 mg/3 mL 2.5 mg (3 mL) inhalation Q4H PRN 08/26/24 02/02/25 02/02/25 Rx (0.083 %) solution for nebulization shortness of breath or wheezing #180 mL albuterol sulfate 90 mcg/actuation 2 puff inhalation Q6H PRN 08/26/24 02/02/25 02/02/25 Rx aerosol inhaler shortness of breath or wheezing #8.5 grams furosemide 40 mg tablet 40 mg PO BID #180 tabs 10/18/24 02/02/25 02/01/25 Rx fluticasone fur. 100 mcg-umeclid 1 inh inhalation DAILY #60 ea 11/10/24 02/02/25 02/01/25 Rx 62.5 mcg-vilant 25 mcg inhalat.powder (Trelegy Ellipta) omeprazole 40 mg capsule,delayed 40 mg PO BID #180 caps 12/20/24 02/02/25 02/01/25 Rx release trazodone 50 mg tablet 50 - 100 mg (1 - 2 x 50 mg) PO QPM 12/28/24 02/02/25 02/01/25 Rx #60 tabs potassium chloride 20 mEq 20 meq PO BID 30 days #60 tabs 01/03/25 02/02/25 02/01/25 Rx tablet,extended release(part/cryst) nicotine (polacrilex) 2 mg buccal 2 mg buccal Q4H PRN nicotine 01/19/25 02/02/25 02/01/25 Rx lozenge cravings #72 ea aripiprazole 2 mg tablet (Abilify) 2 mg PO DAILY #90 tabs 01/24/25 02/02/25 02/01/25 Rx levothyroxine 137 mcg tablet 137 mcg PO DAILY #90 tabs 01/24/25 02/02/25 02/02/25 Rx metoprolol tartrate 25 mg tablet 25 mg PO BID #180 tabs 01/24/25 02/02/25 02/02/25 Rx amlodipine 10 mg tablet 10 mg PO DAILY #90 tabs 01/31/25 02/02/25 02/02/25 Rx oxycodone 5 mg tablet 5 mg PO TID PRN pain 30 days #90 01/31/25 02/02/25 02/01/25 Rx tabs spironolactone 25 mg tablet 25 mg PO QAM #90 tabs 01/31/25 02/02/25 02/01/25 Rx Allergies Allergy/AdvReac Type Severity Reaction Status Date / Time celecoxib (From Celebrex) Allergy itching Verified 02/02/25 06:49 gabapentin Allergy Unknown Verified 02/02/25 06:49 morphine Allergy extreme Verified 02/02/25 06:49 itching Sulfa (Sulfonamide Allergy itching Verified 02/02/25 06:49 Antibiotics) Current Medications Generic Name Dose Route Start Last Admin Trade Name Freq PRN Reason Stop Dose Admin Sodium Chloride 1,000 mls @ 30 mls/hr 02/02/25 06:45 02/02/25 07:12 Sodium Chloride 0.9% IV 02/03/25 06:44 30 mls/hr .Q24H DALE Administration PFSH Anesthesia Medical History (Updated 01/31/25 @ 15:28 by Kayla Mcfarlane DO) Left upper lobe pulmonary nodule on CT screen and PET-suspicious; IR says they can't do bx b/c of body habitus Screening for colorectal cancer Chronic midline low back pain without sciatica Encounter for chronic pain management Pain management contract signed Screening for lung cancer Major depressive disorder Insomnia Bladder wall thickening evaluated by [facility] 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 Dyspnea on exertion Edema of both lower extremities Nicotine dependence, cigarettes, with unspecified nicotine-induced disorders Lumbar stenosis with neurogenic claudication Acquired hypothyroidism Essential hypertension Degenerative disc disease Lumbar spine Osteoarthritis CASE (obstructive sleep apnea) Uses a CPAP Hypercholesteremia GERD (gastroesophageal reflux disease) Surgical History Status post lumbar laminectomy S/P cholecystectomy H/O: hysterectomy Total w/ BSO due to hemorrhage; no cancer History of appendectomy History of tonsillectomy History of hernia repair Right inguinal History of carpal tunnel surgery of left wrist History of carpal tunnel surgery of right wrist Status post left rotator cuff repair Status post medial meniscus repair of right knee Hx of right heart catheterization clear; no stents or angioplasty; around 2020 Family History Mother Cancer, Onset Age: 80 lung cancer Hyperthyroidism COPD (chronic obstructive pulmonary disease) Father Cancer, Onset Age: 56 prostate Brother Bladder cancer Social History Smoking and tobacco/nicotine status: current every day tobacco/nicotine user (3/4 of a pack ) cigarettes Packs smoked per day: 0.75 [ Other cigarette details: started age 20; avg 1/2 ppd X 53 is 22 pk yr hx] Second hand smoke exposure: No Alcohol intake: former Former alcohol use details: occasional social drinker Substance/Drug Use: never Adopted: No Caregiver/support person: Yes Lives independently: Yes Household members: none Housing: Manufactured/Mobile home Marital status: Marital status details: lives alone in camper in daughter's yard Number of children: 3 Highest education level completed: GED or Equivalent service: No Current occupational status: retired 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
--- NOTE | 2025-02-02 08:07 | SC_ITS ---
WS: [id number] C-arm fluoroscopy for bronchoscopy biopsy of the left lung, 02/02/2025 Clinical Data: ion Comparison: CT chest, 01/26/2025 Findings: Dr. Kamara performed a bronchoscopic biopsy of left upper lobe nodule SC/C-arm FL for Bronchoscopy Impression: Bronchoscopic biopsy of left upper lobe nodule.
--- NOTE | 2025-02-02 09:48 | XR_ITS ---
WS: [email or web address] Portable AP upright chest, 02/02/2025 Clinical Data: post ion Comparison: Two-view chest, 08/19/2024 Findings: There is a patchy left upper lobe opacity which may represent minimal local hemorrhage from the recent bronchoscopy biopsy. The heart is slightly enlarged. The right lung shows no nodules or masses. No effusions or pneumothorax can be seen. No pneumonia is present. The aortic arch shows calci fication and tortuosity. There are monitor leads on the chest wall. XR/XR chest 1V portable [id number] Impression: 1. Patchy left upper lobe opacity which may represent minimal local hemorrhage from the recent biopsy. 2. Atherosclerosis.
--- NOTE | 2025-02-02 09:52 | P.BOP_ITS ---
Interventional Pulmonary Immediate Brief Operative Note: * Date of Procedure:?02/02/2025 * Preoperative Diagnosis: Left upper lobe lung nodule and mediastinal/hilar lymph adenopathy * Postoperative Diagnosis:?[Same as pre-op] * Procedures Performed: Navigational bronchosocpy and EBUS staging * Surgeon / Cell Cleaner:?Nigel Kamara MD * Anesthesia: * ?General anesthesia * Findings: Left upper lobe nodule and mediastinal lymphadenopathy * Estimated Blood Loss (EBL):?[Minimal] * Specimens: * Left upper lobe BAL fluid * ?TBNA from station(s) MARIYA nodule, 4R, 7, 4L * ?Forceps and cryo biopsy from MARIYA nodule and station 7 * Complications:?None * Disposition:?Transferred to PACU in stable condition. Nigel Kamara MD, FACP Interventional Pulmonogist
--- NOTE | 2025-02-02 09:52 | W.PM.BPON ---
Interventional Pulmonary Immediate Brief Operative Note: Date of Procedure:?02/02/2025 Preoperative Diagnosis: Left upper lobe lung nodule and mediastinal/hilar lymph adenopathy Postoperative Diagnosis:?[Same as pre-op] Procedures Performed: Navigational bronchosocpy and EBUS staging Surgeon / Washer Engineer Helper:?Nigel Kamara MD Anesthesia: ?General anesthesia Findings: Left upper lobe nodule and mediastinal lymphadenopathy Estimated Blood Loss (EBL):?[Minimal] Specimens: Left upper lobe BAL fluid ?TBNA from station(s) MARIYA nodule, 4R, 7, 4L ?Forceps and cryo biopsy from MARIYA nodule and station 7 Complications:?None Disposition:?Transferred to PACU in stable condition. Nigel Kamara MD, FACP Interventional Pulmonogist
[2025-02-02] MEDS: EPINEPHrine 1 MG in sodium chloride 0.9% 19 ML XX (09:58)
--- NOTE | 2025-02-02 10:29 | P.OP_ITS ---
Operative Report Date of procedure: February 02, 2025 Pre-op diagnosis: Left upper lobe nodule Post-op diagnosis: Left upper lobe nodule and mediastinal lymphadenopathy Procedure done: Robotic bronchoscopy with EBUS Surgeon: Nigel Kamara MD Estimated blood loss: Minimal Complications: None Findings: Procedure: Robotic bronchoscopy with complete mediastinal staging Attending: Nigel Kamara MD, FACP, FASN Indication: Left upper lobe nodule Anesthesia: General anesthesia per anesthesia team Procedure: Pre-Anesthesia Assessment [place] Protocol: Pre-procedure Verification: Prior to the procedure, the patient's identity was confirmed using full name, date of , and medical record number. Identity verification included a review of all relevant medical records, history, physical examination, medications, allergies, and previous anesthesia tolerance. Risks, benefits, sedation options, and associated risks were reviewed with the patient, and informed consent was obtained after addressing all questions. Time-Out: Immediately before the procedure, a time-out was conducted to confirm patient identification, procedure details, consent, image labeling, and the need for prophylactic antibiotics. This was verified by the physician, nurse, anesthesiologist, and apartment leasing consultant. Outcome: The procedure was completed without difficulty, and the patient tolerated it well. Findings: A thorough airway exam was performed after passage of the bronchoscope. The trachea was anatomically normal. The right sided airway was anatomically normal without endobronchial lesions. No significant secretions The left sided airway was anatomically normal without endobronchial lesions. No significant secretion The prior bronchoscope was removed from the airway. The [employer] Robotic Bronchoscopy platform was moved into place. The robotic bronchoscope was inserted into the endotracheal tube with care. The position of the bronchoscope was registered to a pre-existing CT scan using shape-sensing virtual bronchoscopy technology (34198). We navigated towards the lesion in the left upper lobe nodule using a pre- planned route using virtual bronchoscopy Prior to sampling, confirmation of lesion location was done using: ?- Radial ultrasound probe with an eccentric view (50833), ?- Fluroscopy with a tool overlying the lesion on at least one visual plane. ?- Virtual target located directly within the path of intended biopsy direction on EMN, ?- [facility] Beam intraoperative CT was performed 2 time(s).? The intraoperative CT imaging interpretation was utilized for guidance for needle placement. Imaging interpretation by me shows the persistent lesion as well as a tool within the lesion (35864) ?- CBCT data from the intraoperative imaging was integrated into the ION navigation software and the virtual lesion was updated. After confirming our location, we proceeded to sampling. - Transbronchial needle aspiraiton (TBNA) was performed of the lesion using the 23-gauge ION TBNA needle.? A total of 6 passes were formed. (24179) - Transbronchial biopsies of the lesion were performed using the captura 1.8 mm forceps and 1.1 cryoprobe).? A total of 12 samples were obtained. (26501) - Endobronchial brushings performed down the airway towards the lesion.? A total of 2 brushings were obtained. (76407) - A bronchoalveolar lavage was performed of the lobe containing the target lesion with 80 mL of saline instilled and 30 mL of effluent returned.? Additional rinse from the robotic bronchoscope lumen was added to the sample after removal of the scope. (30011) The prior bronchoscope was removed from the airway and the EBUS scope was inserted. A complete curvilinear EBUS procedure was performed of the following lymph nodes: Level 11R station was identified with the EBUS scope but did not meet criteria for sampling Level 4R station was identified with the EBUS scope at the lateral RMSB and 4 passes were made using a 22G Olympus TBNA needle. Level 7 station was identified with the EBUS scope at the medial LMSB/RMSB and 4 passes were made using a 22G Olympus TBNA needle. Level 4L station was identified with the EBUS scope at the lateral LMSB and 4 passes were made using a 22G Olympus TBNA needle Level 11L station was identified with the EBUS scope but did not meet the criteria for sample Then using the EBUS TBNA needle, I created track in station 7 lymph node for the 1.1 cryoprobe and I performed transbronchial lymph node biopsy using that 1.1 cryoprobe and I obtained 4 samples. (65331) ? Minimal bleeding post cryobiopsy that required ice cold saline and 4 cc of topical epinephrine (1: 20,000 concentration). Then we achieved complete hemostasis. [place] Bleeding Scale Grade 2 Following completion of all diagnostic and therapeutic procedures, hemostasis was verified.? The scope was removed and procedure concluded. In summary, the following procedures were performed: [address] [place] (Endobronchial Brushing(s)), 66700 BAL, (Bronchoalveolar Lavage), 37589 TBBX, (Transbronchial biopsies, first lobe), 35013 TBBX additional lymph node transbronchial biopsy 34061 pTBNA, (peripheral transbronchial needle aspiration), 72249 cEBUS 3 or more lesions, (Central curvelinear EBUS 3 or more lesions), 49127 pEBUS (peripheral/radial EBUS)? , 7[address]40 [place], (Navigation bronchoscopy, [facility], [email or web address]), 32642: CT guidance for needle placement, ? Nigel Kamara MD, FACP, FASN Interventional Pulmonary
--- NOTE | 2025-02-02 12:00 | ANE.PACU2 ---
Inpatient post-anesthesia follow up: Airway intact: Yes Vital signs: Temperature 97.4 F Pulse Rate 76 Respiratory Rate 18 Blood Pressure 158/68 Pulse Oximetry 95 Oxygen Delivery Me thod Room Air Oxygen Flow Rate 10 Fraction of Inspir ed Oxygen Hydration adequate: Yes Nausea and vomiting: No Pain level: 1 Mental status: Baseline
== END 2025-02-02 12:00 | disposition home or self-care (01) ==
PROVIDERS: PCP Family Medicine; Visit Provider Internal Medicine
PROC: 0BJ08ZZ Inspection of Tracheobronchial Tree, Via Natural or Artificial Opening Endoscopic (ICD-10-PCS; CPT 31622; principal; 2025-02-02 07:00)
PROC: BB4BZZZ Ultrasonography of Pleura (ICD-10-PCS; 2025-02-02 07:00)
DX: C34.12 Malignant neoplasm of upper lobe, left bronchus or lung (principal); R59.1 Generalized enlarged lymph nodes; J44.9 Chronic obstructive pulmonary disease, unspecified; I11.0 Hypertensive heart disease with heart failure; I50.9 Heart failure, unspecified; K21.9 Gastro-esophageal reflux disease without esophagitis; E78.5 Hyperlipidemia, unspecified; G47.33 Obstructive sleep apnea (adult) (pediatric); E03.9 Hypothyroidism, unspecified; F17.210 Nicotine dependence, cigarettes, uncomplicated; Z79.891 Long term (current) use of opiate analgesic; F41.9 Anxiety disorder, unspecified; F32.9 Major depressive disorder, single episode, unspecified
CPT/HCPCS: 31623; 31624; 31627; 31628; 31629; 31632; 31653; 31654; 71045; 71250; 76000; 77012; 87015; 87070; 87102; 87116; 87205; 87206; 87801; 88112; 88173; 88305; 88342; J0169; J2704; J3010; J7030; J9999

== ENCOUNTER → 2025-02-07 14:34 | Outpatient (BNVA) | payer MEDICARE, MEDICAID, SELFPAY | PROVIDERS: PCP Family Medicine; Visit Provider Internal Medicine | DX: C34.12 Malignant neoplasm of upper lobe, left bronchus or lung (principal); Z98.890 Other specified postprocedural states; F17.210 Nicotine dependence, cigarettes, uncomplicated; R91.1 Solitary pulmonary nodule | CPT/HCPCS: 99215 ==

== ENCOUNTER 2025-02-08 07:47 | Outpatient (CLI) | payer MEDICARE, MEDICAID, SELFPAY ==
[2025-02-08 08:10] VITALS: PULSE 60; RESP 18; O2SAT 96
== END 2025-02-08 07:48 | disposition home or self-care (01) ==
PROVIDERS: PCP Family Medicine
DX: J43.1 Panlobular emphysema (principal); R06.09 Other forms of dyspnea; R94.2 Abnormal results of pulmonary function studies
CPT/HCPCS: 94060; 94729; J7613

== ENCOUNTER 2025-02-10 08:51 | Oncology outpatient (recurring) (ONCR) | payer MEDICARE, MEDICAID, SELFPAY ==
--- NOTE | 2025-02-10 12:53 | N.ONRAD NP_ITS ---
Radiation Oncology New Patient Visit Patient: Alesia Membreno MR#: [id number] : 1950 Age: 74 Sex: Female Dictated by: Yanick Smith DO/ALLI/ANANDA Date of Service: 02/10/2025 Referring Physician(s) : DR. WATTERS Diagnosis: SOLITRY MARIYA NODULE, SCC, SERIAL CT CHEST WIT LATEST 01/26/2025 1.4 X 0.9X 0.7, PET/CT 01/28/25 1.5 X 1CM(7.7), -H/C/WT LOSS/BONE PAIN, 50 PYSH+, ACTIVE TOBACCO ABUSE, THORACIC SURG EVAL PENDING STAGE: IA2- [id number] ICD-10: C34.12 Radiotherapy to date: Summary > No prior radiation therapy. Chief Complaint / History of Present Illness: Patient is here for consideration of treatment for MARIYA solitary nodule biopsy-proven SCC This is a pleasant obese 73-year-old female active smoker who is had serial CTs over the last few years. Chest CT on 06/02/2024 showed a MARIYA nodule measuring 1.2 cm. PET/CT on 06/11/2024 revealed a 1.2 x 0.5 cm lesion (6.2) no mediastinal disease CT chest on 09/29/2024 showed the nodule to increase to 1.4 cm Echocardiogram on 12/01/2024 showed 64% ejection fraction. Pulmonary office visit on 01/19/[address] and PET/CT. CT of the chest on 01/26/2025 revealed a 1.4 x 0.9 x 0.7 cm MARIYA nodule with no mediastinal adenopathy PET/CT on 01/28/2025 noted a 1.5 x 1 cm nodule (7.7). Navigational bronc on 02/02/2025 showed no evidence and station 7R4 or L4 disease. Left upper lobe showed SCC with submucosal CLSI. Dr. Watters saw the patient 02/10/2025 and recommended referral to radiation oncology as well as thoracic surgery. She wishes to be evaluated in [place] for surgical possibility. Patient has a 40-apbc-ipdz smoking history but denies any significant shortness of breath other than body habitus. Current Medications: albuterol sulfate 90 mcg/actuation 2 puffs inhalation Q6H PRN albuterol sulfate 2.5 mg (3 mL) inhalation Q4H PRN amlodipine 10 mg PO DAILY aripiprazole (Abilify) 2 mg PO DAILY aspirin 81 mg PO DAILY atorvastatin 20 mg PO DAILY compressor, for nebulizer nebulizer with tubing kit; As directed [Cpap mask and suppies As directed] tyzvpnyzioz-kpdxguvwh-ernfgsru 100-62.5-25 mcg (Trelegy Ellipta) 1 inh inhalation DAILY furosemide 40 mg PO BID levothyroxine 137 mcg PO DAILY losartan 100 mg PO DAILY metoprolol tartrate 25 mg PO BID omeprazole 40 mg PO BID oxycodone 5 mg PO TID PRN 30 days potassium chloride ER 20 mEq PO BID 30 days spironolactone 25 mg PO QAM trazodone 50 - 100 mg (1 - 2 x 50 mg) PO QPM vilazodone (Viibryd) 40 mg PO DAILY Allergies: celecoxib (From Celebrex) Allergy (Verified 02/10/25 08:57) itching gabapentin Allergy (Verified 02/10/25 08:57) Unknown morphine Allergy (Verified 02/10/25 08:57) extreme itching Sulfa (Sulfonamide Antibiotics) Allergy (Verified 02/10/25 08:57) itching Medical History: No history of collagen vascular disease. No previous radiation therapy. Left upper lobe pulmonary nodule on CT screen and PET-suspicious; IR says they can't do bx b/c of body habitus Screening for colorectal cancer Chronic midline low back pain without sciatica Encounter for chronic pain management Pain management contract signed Screening for lung cancer Major depressive disorder Insomnia Bladder wall thickening evaluated by [facility] 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 Dyspnea on exertion Edema of both lower extremities Nicotine dependence, cigarettes, with unspecified nicotine-induced disorders Lumbar stenosis with neurogenic claudication Acquired hypothyroidism Essential hypertension Degenerative disc disease Lumbar spine Osteoarthritis CASE (obstructive sleep apnea) Uses a CPAP Hypercholesteremia GERD (gastroesophageal reflux disease) Surgical History: Status post lumbar laminectomy S/P cholecystectomy H/O: hysterectomy Total w/ BSO due to hemorrhage; no cancer History of appendectomy History of tonsillectomy History of hernia repair Right inguinal History of carpal tunnel surgery of left wrist History of carpal tunnel surgery of right wrist Status post left rotator cuff repair Status post medial meniscus repair of right knee Hx of right heart catheterization clear; no stents or angioplasty; around 2020 Family History: Mother Cancer, Onset Age: 80 lung cancer Hyperthyroidism COPD (chronic obstructive pulmonary disease) Father Cancer, Onset Age: 56 prostate Brother Bladder cancer Social History: Smoking and tobacco/nicotine status: current every day tobacco/nicotine user (/ ppd x 40 plus years ) cigarettes Packs smoked per day: 0.75 [ Other cigarette details: started age 20; avg 06/17 ppd X 53 is 22 pk yr hx] Second hand smoke exposure: No Alcohol intake: former Former alcohol use details: occasional social drinker Substance/Drug Use: never Adopted: No Caregiver/support person: Yes Lives independently: Yes Household members: none Housing: Manufactured/Mobile home Marital status: Marital status details: lives alone in camper in daughter's yard Number of children: 3 Highest education level completed: GED or Equivalent service: No Current occupational status: retired 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 As above Vital Signs: Performed on 02/10/2025 10:37 AM BMI - 46.234 kg/m2 (high), Height - 63 in, Weight - 261 lbs, Temperature - 97.6 f, Pulse - 61 /min, Respiration - 17 /min, O2 Sat - 93 % (low), Pain - 4, Fatigue - 0 and BP - 103/ 61 mm(hg)(/low). Physical Exam: Alert and oriented and answers questions appropriately. Head is normocephalic without masses. Neck shows no cervical lymphadenopathy. Chest obese and nontender with no intercostal retraction. Abdomen obese nontender with no hepatosplenomegaly. Extremities intact x 4 Vertebral exam shows no bony tenderness. Performance Status: KPS 70 Pathology: As above Lab: Imaging: See HPI Impression: SOLITRY MARIYA NODULE, SCC, SERIAL CT CHEST WIT LATEST 01/26/2025 1.4 X 0.9X 0.7, PET/CT 01/28/25 1.5 X 1CM(7.7), -H/C/WT LOSS/BONE PAIN, 50 PYSH+, ACTIVE TOBACCO ABUSE, THORACIC SURG EVAL PENDING STAGE: IA2- [id number] ICD-10: C34.12 Plan: Options were discussed with the patient and daughter. Patient to have thoracic evaluation in [place] in the near future Also recommended as another option SBRT in a total dose of 4 fractions to 4800 to 5000 cGy in divided doses. Patient given a card and will call us after her decision has been made. Signed by: 02/10/2025 12:52:12 PM <<Signature on File>> Time spent with patient/family/record review/record preparation: 65 minutes CPT Code: CPT Code:
== END 2025-02-13 23:59 | disposition home or self-care (01) ==
PROVIDERS: PCP Family Medicine; Visit Provider Internal Medicine
DX: C34.92 Malignant neoplasm of unspecified part of left bronchus or lung (principal); F17.210 Nicotine dependence, cigarettes, uncomplicated; E66.9 Obesity, unspecified; Z68.42 Body mass index [BMI] 45.0-49.9, adult; G47.33 Obstructive sleep apnea (adult) (pediatric)
CPT/HCPCS: 99204; 99205

== ENCOUNTER 2025-03-24 11:00 | Outpatient (CLI) | payer MEDICARE, MEDICAID, SELFPAY ==
[2025-03-24 12:22] LABS: Hematocrit 44.0 % (36-47); Hemoglobin 13.60 g/dL (11.27-16.99); Mean Corpuscular HGB Conc 30.9 g/dL (30-55); Mean Corpuscular Hemoglobin 27.0 pg (27-33); Mean Corpuscular Volume 87.5 fl (85-98); Nucleated Red Blood Cells % 0 %; Platelet Count 250 10^3/cmm (157-399); Red Blood Count 5.03 10^6/uL (3.85-5.65); White Blood Count 12.98 10^3/uL (3.29-11.43)
[2025-03-24 12:42] LABS: Alanine Aminotransferase 8 U/L (0-33); Albumin Level 3.7 g/dL (3.5-5.2); Alkaline Phosphatase 138 U/L (35-105); Anion Gap 16.4 (5-19); Aspartate Amino Transferase 9 U/L (0-32); Blood Urea Nitrogen 18 mg/dL (8-23); Calcium 8.9 mg/dL (8.5-10.5); Carbon Dioxide 21 mmol/L (22-29); Chloride 104 mmol/L (98-107); Globulin 3.1 g/dL (1.3-4.6); Glucose 136 mg/dL (65-115); Osmolality Calculated 288 mOsm/kg (285-295); Potassium 4.4 mmol/L (3.5-5.1); Sodium 137 mmol/L (136-145); Total Protein 6.8 g/dL (6.6-8.7)
== END 2025-03-24 11:01 | disposition home or self-care (01) ==
LOC: LAB 11:03
PROVIDERS: PCP Family Medicine; Visit Provider Internal Medicine
DX: C34.12 Malignant neoplasm of upper lobe, left bronchus or lung (principal); R91.1 Solitary pulmonary nodule; F17.210 Nicotine dependence, cigarettes, uncomplicated; I10 Essential (primary) hypertension; E03.9 Hypothyroidism, unspecified; J44.9 Chronic obstructive pulmonary disease, unspecified; E78.5 Hyperlipidemia, unspecified; K21.9 Gastro-esophageal reflux disease without esophagitis; M54.89 Other dorsalgia; G89.29 Other chronic pain
CPT/HCPCS: 36415; 80053; 83615; 85025; 99213

== ENCOUNTER 2025-04-13 09:45 | Oncology outpatient (recurring) (ONCR) | payer MEDICARE, MEDICAID, SELFPAY ==
--- NOTE | 2025-03-24 13:28 | ONCRAD EPV_ITS ---
Radiation Oncology Established Patient Visit Patient: Alesia Membreno [id number] : 1950 Age: 74 Sex: Female Dictated by: Dr. Stephanie Hunter Date of Service: 03/24/2025 Referring Physician(s) : Diagnosis: C34.12 - Malignant neoplasm of upper lobe, left bronchus or lung, Diagnosed 02/10/2025 (Active) Radiotherapy to Date: None Current History: She is here with her daughter for follow-up. She was evaluated by thoracic surgery yesterday and advised she is not a surgical candidate. Current Medications: albuterol sulfate 90 mcg/actuation 2 puffs inhalation Q6H PRN albuterol sulfate 2.5 mg (3 mL) inhalation Q4H PRN amlodipine 10 mg PO DAILY aripiprazole (Abilify) 2 mg PO DAILY aspirin 81 mg PO DAILY atorvastatin 20 mg PO DAILY compressor, for nebulizer nebulizer with tubing kit; As directed [Cpap mask and suppies As directed] [id number] 100-62.5-25 mcg (Trelegy Ellipta) 1 inh inhalation DAILY furosemide 40 mg PO BID levothyroxine 137 mcg PO DAILY losartan 100 mg PO DAILY metoprolol tartrate 25 mg PO BID omeprazole 40 mg PO BID oxycodone 5 mg PO TID PRN 30 days potassium chloride ER 20 mEq PO BID 30 days spironolactone 25 mg PO QAM trazodone 50 - 100 mg (1 - 2 x 50 mg) PO QPM vilazodone (Viibryd) 40 mg PO DAILY Allergies: celecoxib (From Celebrex) Allergy (Verified 03/24/25 12:14) itching gabapentin Allergy (Verified 03/24/25 12:14) Unknown morphine Allergy (Verified 03/24/25 12:14) extreme itching Sulfa (Sulfonamide Antibiotics) Allergy (Verified 03/24/25 12:14) itching Current Complaints / Review of Systems: . Vital Signs: Performed on 03/24/2025 12:56 PM BMI - 46.589 kg/m2 (high), Height - 63 in, Weight - 263 lbs, Temperature - 97.6 f, Pulse - 61 /min, Respiration - 14 /min, O2 Sat - 93 % (low), Pain - 0, Fatigue - 0 and BP - 107/ 62 mm(hg)(/low) Physical Exam: General: Alert and oriented x 3. No acute distress. HEENT: Normocephalic, atraumatic. Extraocular Movements Intact: Pupils Equal, Round, Reactive to Light and Accommodation: Sclerae anicteric. LUNGS:. Respiratory rate is regular nonlabored HEART: Regular rate and rhythm, ABDOMEN moderately protuberant android pattern Performance Status: 80 Lab: None pending. Pathology: Primary, c34.12 - malignant neoplasm of upper lobe, left bronchus or lung, Diagnosed 02/10/2025 (active) . 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 We talked today about using SBRT on the lesion. We also reviewed how has been 2 months since her last PET scan and we need to repeat that prior to initiating treatment. We talked about the simulation process. We talked about the daily treatment regiment of 4-8 treatments depending on the findings at the time of the PET. We reviewed the risks and side effects as well as the long-term follow-up plan of 6-month CTs after this once she has had her follow-up PET scan. All of this will be predicated on her PET being minimally different than it was in January. This point she verbalized understanding. Will get her scheduled for the above and then have her return to undergo simulation as well as go over results. Signed by: 03/24/2025 1:27:24 PM <<Signature on File>> Time spent with patient:25 CPT Code: CPT Code:
--- NOTE | 2025-04-08 08:00 | PETR_ITS ---
PROCEDURE INFORMATION: Exam: PET/CT Skull Base to Mid-thigh Exam date and time: 04/08/2025 9:03 AM Age: 74 years old Clinical indication: Condition or disease; Primary cancer: Lung cancer LABS AND CLINICAL REPORTS: Glucose: 105 mg/dl Treatment strategy for malignancy (PET staging): Restaging (PS) TECHNIQUE: Imaging protocol: Following at least four-hour fasting and following the injection of radiopharmaceutical, low dose CT images were obtained. Then, PET images were obtained. Attenuation corrected images were constructed using the CT scan. Fused images of PET and CT were reviewed. The standardized uptake values (SUV) reported below are maximum values within a region of interest, expressed in gm/ml. Exam includes orbital meatal line to mid-thigh. SUV normalization method: BodyWeight Radiopharmaceutical: 11.3 mCi F-18 FDG (Fluorodeoxyglucose), IV. Time of imaging post radiopharmaceutical administration: 51 minutes Injection site: right ac COMPARISON: PT PET skull to thigh INIT [id number] 01/28/2025 3:23 PM FINDINGS: Brain: Visualized brain has normal physiologic uptake. Pharynx: No abnormal uptake. Larynx: No abnormal uptake. Lungs, pleura and trachea: Grossly stable appearance of a 1.4 x 0.9 cm apicoposterior left upper lobe pulmonary nodule with maximum SUV of 6.7, previously 7.7 on the prior study stable calcified granuloma in the left lower lobe.. Heart: Normal physiologic uptake. Mild coronary artery calcifications. Mediastinal space: No abnormal uptake. Liver: No abnormal uptake. Gallbladder and biliary ducts: No abnormal uptake. Status post cholecystectomy. Pancreas: No abnormal uptake. Spleen: No abnormal uptake. Adrenal glands: No abnormal uptake. Kidneys and ureters: Normal physiologic uptake. Stomach and bowel: No abnormal uptake. Colonic diverticulosis without evidence of diverticulitis. Vasculature: The vasculature demonstrates diffuse moderate atherosclerotic calcification. No aneurysm. Lymph nodes: No abnormal uptake. No lymphadenopathy in the head, neck, chest, abdomen, pelvis, and extremities. Calcified hilar lymph nodes, suggestive of prior granulomatous organism exposure. Skeleton: No abnormal uptake in the visualized axial and appendicular skeleton. Degenerative bilateral glenohumeral joint uptake. Soft tissues: No abnormal uptake in the visualized head, neck, chest, abdomen, pelvis, and extremities. METRICS: Mediastinal blood pool: Mean SUV of 2.3 Liver uptake: Mean SUV of 2.7 PET/PET skull to thigh SUBS [id number] IMPRESSION: 1. Left upper lobe hypermetabolic pulmonary nodule, unchanged in size and appearance compared to the prior PET-CT and suspicious for malignancy. 2. No functional or anatomic evidence of metastatic disease.
[2025-04-13 09:58] LABS: Hematocrit 42.5 % (36-47); Hemoglobin 13.20 g/dL (11.27-16.99); Mean Corpuscular HGB Conc 31.1 g/dL (30-55); Mean Corpuscular Hemoglobin 26.3 pg (27-33); Mean Corpuscular Volume 84.7 fl (85-98); Nucleated Red Blood Cells % 0 %; Platelet Count 257 10^3/cmm (157-399); Red Blood Count 5.02 10^6/uL (3.85-5.65); White Blood Count 11.85 10^3/uL (3.29-11.43)
[2025-04-13 10:16] LABS: Alanine Aminotransferase 7 U/L (0-33); Albumin Level 3.8 g/dL (3.5-5.2); Alkaline Phosphatase 147 U/L (35-105); Anion Gap 15.2 (5-19); Aspartate Amino Transferase 21 U/L (0-32); Blood Urea Nitrogen 12 mg/dL (8-23); Calcium 9.1 mg/dL (8.5-10.5); Carbon Dioxide 24 mmol/L (22-29); Chloride 103 mmol/L (98-107); Creatinine Clr Calc Pharmacy 70.6576; Globulin 2.7 g/dL (1.3-4.6); Glucose 112 mg/dL (65-115); Osmolality Calculated 287 mOsm/kg (285-295); Potassium 4.2 mmol/L (3.5-5.1); Sodium 138 mmol/L (136-145); Total Protein 6.5 g/dL (6.6-8.7)
--- NOTE | 2025-04-13 13:43 | ONCRAD EPV_ITS ---
Radiation Oncology Established Patient Visit Patient: Alesia Membreno [id number] : 1950 Age: 74 Sex: Female Dictated by: Dr. Stephanie Hunter Date of Service: 04/13/2025 Referring Physician(s) : Diagnosis: C34.12 - Malignant neoplasm of upper lobe, left bronchus or lung, Diagnosed 02/10/2025 (Active) Radiotherapy to Date: Current History: Patient returns today to receive the results of her PET scan and undergo simulation. Her PET scan did not show any new evidence of disease and there was no change in the size of the lesion in her lung. Current Medications: albuterol sulfate 90 mcg/actuation 2 puffs inhalation Q6H PRN albuterol sulfate 2.5 mg (3 mL) inhalation Q4H PRN amlodipine 10 mg PO DAILY aripiprazole (Abilify) 2 mg PO DAILY aspirin 81 mg PO DAILY atorvastatin 20 mg PO DAILY compressor, for nebulizer nebulizer with tubing kit; As directed [Cpap mask and suppies As directed] [id number]-[id number] 100-62.5-25 mcg (Trelegy Ellipta) 1 inh inhalation DAILY furosemide 40 mg PO BID levothyroxine 137 mcg PO DAILY losartan 100 mg PO DAILY metoprolol tartrate 25 mg PO BID omeprazole 40 mg PO BID oxycodone 5 mg PO TID PRN 30 days potassium chloride ER 20 mEq PO BID 30 days spironolactone 25 mg PO QAM trazodone 50 - 100 mg (1 - 2 x 50 mg) PO QPM vilazodone (Viibryd) 40 mg PO DAILY Allergies: celecoxib (From Celebrex) Allergy (Verified 02/10/25 08:57) itching gabapentin Allergy (Verified 02/10/25 08:57) Unknown morphine Allergy (Verified 02/10/25 08:57) extreme itching Sulfa (Sulfonamide Antibiotics) Allergy (Verified 02/10/25 08:57) itching Current Complaints / Review of Systems: . Vital Signs: Performed on 04/13/2025 11:25 AM BMI - 46.482 kg/m2 (high), Height - 63 in, Weight - 262.4 lbs, Temperature - 97.1 f, Pulse - 60 /min, Respiration - 18 /min, O2 Sat - 60 % (low), Pain - 0, Fatigue - 0 and BP - 119/ 67 mm(hg). Performance Status: 80 Lab: None pending. Pathology: Primary, c34.12 - malignant neoplasm of upper lobe, left bronchus or lung, Diagnosed 02/10/2025 (active) . Imaging: See HPI Impression: Non-small cell carcinoma of the lung stage I Plan: I reviewed the results of her PET scan. We talked about how now we can proceed with the SBRT radiation to the spot. She is in agreement with this she was scheduled for simulation today. Will start her treatments next week with a plan for 4 treatments over 2 weeks. Signed by: 04/13/2025 1:42:23 PM <<Signature on File>> Time spent with patient: 20 CPT Code: CPT Code:
== END 2025-04-15 23:59 | disposition home or self-care (01) ==
PROVIDERS: Internal Medicine; PCP Family Medicine; Visit Provider Radiology Radiation Oncology
DX: Z53.9 Procedure and treatment not carried out, unspecified reason; C34.12 Malignant neoplasm of upper lobe, left bronchus or lung; F17.210 Nicotine dependence, cigarettes, uncomplicated; I10 Essential (primary) hypertension; J44.9 Chronic obstructive pulmonary disease, unspecified; E66.9 Obesity, unspecified; Z68.42 Body mass index [BMI] 45.0-49.9, adult; Z71.6 Tobacco abuse counseling
CPT/HCPCS: 36415; 77300; 77301; 77334; 77338; 78815; 80053; 83615; 85025; 99024; 99213; A9552

== ENCOUNTER 2025-04-28 14:14 | Oncology outpatient (recurring) (ONCR) | payer MEDICARE, MEDICAID, SELFPAY ==
--- NOTE | 2025-04-28 15:04 | N.ONRD TS_ITS ---
Radiation Oncology OTV/ Treatment Summary Patient: Alesia Membreno MR#: [id number] : 1950 Age: 74 Sex: Female Dictated by: Vicente Smith Date of Service: 04/28/2025 Referring Physician(s) : Dr. Kamara Diagnosis: C34.12 - Malignant neoplasm of upper lobe, left bronchus or lung, Diagnosed 02/10/2025 (Active) Radiotherapy to Date: Course: Lt Lung 2024, Treatment Site: [facility] SBRT 48Gy, Ref. ID: [id number], Energy: 6X, Dose/Fx (cGy): 1,200, #Fx: 4 / 4, Dose Correction (cGy): 0, Total Dose Delivered (cGy): 4,800, Start Date: 04/19/2025, End Date: 04/28/2025, Elapsed Days: 9 Vital Signs: Performed on 04/28/2025 2:29 PM BMI - 46.518 kg/m2 (high), Height - 63 in, Weight - 262.6 lbs, Temperature - 97.8 f, Pulse - 70 /min, Respiration - 18 /min, O2 Sat - 94 % (low), Pain - 0, Fatigue - 0 and BP - 134/ 69 mm(hg). Clinical Summary: The patient tolerated RT well. No voice complaints Plan: End of treatment today. Continue on the above medication until the skin reaction resolves. Follow up in one month. Signed by: Vicente Smith>04/28/2025 3:02:51 PM <<Signature on File>>
== END 2025-05-15 23:59 | disposition home or self-care (01) ==
PROVIDERS: PCP Family Medicine; Visit Provider Radiology Radiation Oncology
DX: Z53.9 Procedure and treatment not carried out, unspecified reason (principal); C34.12 Malignant neoplasm of upper lobe, left bronchus or lung; F17.210 Nicotine dependence, cigarettes, uncomplicated; I10 Essential (primary) hypertension; J44.9 Chronic obstructive pulmonary disease, unspecified; E66.9 Obesity, unspecified; Z68.42 Body mass index [BMI] 45.0-49.9, adult; Z71.6 Tobacco abuse counseling; R91.1 Solitary pulmonary nodule; J84.10 Pulmonary fibrosis, unspecified; I25.10 Atherosclerotic heart disease of native coronary artery without angina pectoris; Z90.49 Acquired absence of other specified parts of digestive tract; K57.30 Diverticulosis of large intestine without perforation or abscess without bleeding; I70.90 Unspecified atherosclerosis; I89.8 Other specified noninfective disorders of lymphatic vessels and lymph nodes; M19.011 Primary osteoarthritis, right shoulder; M19.012 Primary osteoarthritis, left shoulder
CPT/HCPCS: 77336; 77373; 99024

== ENCOUNTER → 2025-05-17 11:59 | Outpatient (BNVA) | payer MEDICARE, MEDICAID, SELFPAY | PROVIDERS: PCP Family Medicine; Visit Provider Family Medicine | DX: E03.9 Hypothyroidism, unspecified (principal) | CPT/HCPCS: 84439; 84443 ==

== ENCOUNTER → 2025-05-18 14:20 | Outpatient (BNVA) | payer MEDICARE, MEDICAID, SELFPAY | PROVIDERS: PCP Family Medicine; Visit Provider Internal Medicine | DX: G47.33 Obstructive sleep apnea (adult) (pediatric) (principal); Z99.89 Dependence on other enabling machines and devices; Z91.198 Patient's noncompliance with other medical treatment and regimen for other reason; R91.1 Solitary pulmonary nodule; J44.9 Chronic obstructive pulmonary disease, unspecified; Z12.2 Encounter for screening for malignant neoplasm of respiratory organs; F17.210 Nicotine dependence, cigarettes, uncomplicated | CPT/HCPCS: 99213; Q3014 ==

== ENCOUNTER → 2025-05-25 11:06 | Outpatient (BNVA) | payer MEDICARE, MEDICAID, SELFPAY | PROVIDERS: PCP Family Medicine; Visit Provider Nurse Practitioner Family | DX: I11.0 Hypertensive heart disease with heart failure (principal); I50.33 Acute on chronic diastolic (congestive) heart failure; E78.00 Pure hypercholesterolemia, unspecified; R91.1 Solitary pulmonary nodule; J44.9 Chronic obstructive pulmonary disease, unspecified; G47.30 Sleep apnea, unspecified; F17.210 Nicotine dependence, cigarettes, uncomplicated | CPT/HCPCS: 99214 ==